=== PATIENT | male | born 1965 | race Caucasian/White ===

== ENCOUNTER 2018-12-15 13:24 | Inpatient (IN) | payer OTHER ==
[~2018-12-15] VITALS: Ht 188 cm; Wt 59.8 kg
[2018-12-15 14:47] LABS: BASOPHILS ABSOLUTE AUTO 0.01 K/mm3 (0.00-0.23); BASOPHILS PERCENT AUTO 0 % (0-2); EOSINOPHILS PERCENT AUTO 0 % (0-6); Hemoglobin 13.2 g/dL (13.5-17.5); IMMATURE GRAN ABSOLUTE AUTO 0.02 K/mm3 (0.00-0.10); IMMATURE GRAN PERCENT AUTO 0 % (0-1); LYMPHOCYTES ABSOLUTE AUTO 0.14 K/mm3 (0.84-5.20); LYMPHOCYTES PERCENT AUTO 3 % (21-46); MONOCYTES ABSOLUTE AUTO 0.34 K/mm3 (0.16-1.47); MONOCYTES PERCENT AUTO 6 % (4-13); Mean Corpuscular HGB 32.9 pg (26.0-34.0); Mean Corpuscular HGB Conc 33.8 g/dL (31.5-36.5); Mean Corpuscular Volume 97 fL (80-100); Mean Platelet Volume 10.2 fL (9.1-12.4); NEUTROPHILS PERCENT AUTO 91 % (41-73); Platelet Count 78 K/mm3 (150-400); RDW Coefficient Variation 13.5 % (11.7-14.2); RDW Standard Deviation 48.1 fL (35.1-46.3); Red Blood Cell Count 4.01 M/mm3 (4.30-5.90); White Blood Cell Count 5.71 K/mm3 (4.00-11.30)
[2018-12-15 14:58] LABS: Alanine Aminotransfer (ALT/SGP 184 U/L (12-78); Albumin, Blood 3.5 g/dL (3.4-5.0); Albumin/Globulin Ratio 1.1 (0.8-1.8); Alk Phos 87 U/L (50-136); Anion Gap 11 mmol/L (6-16); Aspartate Aminotrans (AST/SGOT 696 U/L (12-37); Bilirubin, Total 0.8 mg/dL (0.1-1.0); Blood Urea Nitrogen 6 mg/dL (8-24); Bun/Creatinine Ratio 9.9 (12.0-20.0); CO2, Blood 25 mmol/L (21-32); Chloride, Blood 105 mmol/L (98-108); Creatinine, Blood 0.61 mg/dL (0.60-1.20); Globulin, Blood 3.2 g/dL (2.2-4.0); Glomerular Filtration Rate >60 (60-); Glucose, Blood 105 mg/dL (70-99); Potassium, Blood 3.8 mmol/L (3.5-5.5); Sodium, Blood 141 mmol/L (136-145); Total Protein, Blood 6.7 g/dL (6.4-8.2)
[2018-12-15] MEDS ORDERED: SERT50 PO (15:53)
[2018-12-15] MEDS ORDERED: PRIM50 PO ×2 (15:53→15:57)
[2018-12-15] MEDS ORDERED: TAMS.4ER PO (15:54)
[2018-12-15] MEDS ORDERED: QUET300 PO (15:55)
[2018-12-15] MEDS ORDERED: CHOL10002 PO (15:56)
[2018-12-15] MEDS ORDERED: DIVA500ER PO (15:57)
[2018-12-15] MEDS ORDERED: B-1100 MG PO (15:58)
[2018-12-15] MEDS ORDERED: COUGHTAB200 MG PO (16:09)
[2018-12-15] MEDS ORDERED: CALCITRATE200 MG PO (16:12)
[2018-12-15] MEDS ORDERED: BENADRYL25 MG PO (16:25)
[2018-12-15 16:34] LABS: Source, Urine Clean Catch
[2018-12-15 16:48] LABS: Bilirubin, Urine Neg (Neg); Blood, Urine 2+ (Neg); Glucose Qualitative, Urine Neg (Neg); Ketones, Urine 1+ (Neg); Leukocyte Esterase, Urine 1+ (Neg); Nitrite, Urine Neg (Neg); Protein, Urine 2+ (Neg); Urobilinogen, Urine 2+ (Normal)
[2018-12-15 16:55] LABS: Appearance, Urine Clear (Clear); Color, Urine Yellow (P-Yellow)
[2018-12-15 16:56] LABS: White Blood Cells, Urine 0-2 /hpf (0-5)
[2018-12-15 16:57] LABS: Bacteria Few /hpf; Squamous Epithelial Cells Rare /hpf (Few)
[2018-12-15 17:31] LABS: International Normalized Ratio 1.02; Prothrombin Time Results 10.8 Sec (9.7-11.5)
--- NOTE | 2018-12-15 18:50 | NUR ---
DR MEEKS HERE TO SEE PT. REPORTS PT MAY EAT AND BE NPO AFTER MN. PT BEEN MED FOR PAIN. PT REPORTS HAVING ESSENTIAL TREMORS. PT DENIES ANY S/SX OF W/D AT THIS TIME. WILL REPORT TO ONCOMING NURSE.
--- NOTE | 2018-12-15 18:50 | NUR ---
PAS TO BLE CALF PLACED
--- NOTE | 2018-12-15 23:10 | NUR ---
2310: PT REPOSITIONED IN BED AND LINENS CHANGED. CHLORHEXIDINE WIPES TO RIGHT SIDE, HIP, GROIN AND BUTTOCKS. PT A&O WITH MODERATE BUE TREMORS AND SWEATING; SEE CIWA ASSESSMENT.
--- NOTE | 2018-12-16 02:24 | NUR ---
0224: RN ENTERS PT ROOM TO FIND PT HAS REMOVED GOWN, STAT LOCK AND IS TUGGING AT IV IN LEFT AC. PT APPEARS CONFUSED BUT STILL FOLLOWS DIRECTIONS. 2 STAFF MEMBERS REPOSITION AND REDRESS PT IN BED. PT MEDICATED PRN RIGHT HIP PAIN AND CIWA SCORE OF 14. URINE IN LAI APPEARS DARK TEA COLORED, MAINTAIN IV FLUIDS AND NPO STATUS IN ANTICIPATION OF POSSIBLE SURGERY LATER TODAY. CALL LIGHT IN REACH, BED ALARMED.
[2018-12-16 06:07] LABS: BASOPHILS ABSOLUTE AUTO 0.01 K/mm3 (0.00-0.23); BASOPHILS PERCENT AUTO 0 % (0-2); EOSINOPHILS ABSOLUTE AUTO 0.02 K/mm3 (0.00-0.68); EOSINOPHILS PERCENT AUTO 1 % (0-6); Hematocrit 30.6 % (37.0-53.0); Hemoglobin 10.2 g/dL (13.5-17.5); IMMATURE GRAN ABSOLUTE AUTO 0.01 K/mm3 (0.00-0.10); IMMATURE GRAN PERCENT AUTO 0 % (0-1); LYMPHOCYTES ABSOLUTE AUTO 0.27 K/mm3 (0.84-5.20); LYMPHOCYTES PERCENT AUTO 7 % (21-46); MONOCYTES PERCENT AUTO 11 % (4-13); Mean Corpuscular HGB 32.3 pg (26.0-34.0); Mean Corpuscular HGB Conc 33.3 g/dL (31.5-36.5); Mean Corpuscular Volume 97 fL (80-100); NEUTROPHILS ABSOLUTE AUTO 3.08 K/mm3 (1.96-9.15); NEUTROPHILS PERCENT AUTO 81 % (41-73); Platelet Count 51 K/mm3 (150-400); RDW Coefficient Variation 13.3 % (11.7-14.2); RDW Standard Deviation 47.6 fL (35.1-46.3); Red Blood Cell Count 3.16 M/mm3 (4.30-5.90); White Blood Cell Count 3.79 K/mm3 (4.00-11.30)
[2018-12-16 06:21] LABS: Anion Gap 7 mmol/L (6-16); Blood Urea Nitrogen 6 mg/dL (8-24); Bun/Creatinine Ratio 12.2 (12.0-20.0); CO2, Blood 27 mmol/L (21-32); Calcium, Blood 7.8 mg/dL (8.5-10.1); Chloride, Blood 104 mmol/L (98-108); Creatinine, Blood 0.49 mg/dL (0.60-1.20); Glomerular Filtration Rate >60 (60-); Glucose, Blood 97 mg/dL (70-99); Potassium, Blood 3.4 mmol/L (3.5-5.5); Sodium, Blood 138 mmol/L (136-145)
[2018-12-16 06:38] LABS: Albumin, Blood 2.8 g/dL (3.4-5.0); Albumin/Globulin Ratio 1.1 (0.8-1.8); Bilirubin, Direct 0.6 mg/dL (0.0-0.3); Bilirubin, Indirect 0.9 mg/dL (0.1-0.7); Bilirubin, Total 1.5 mg/dL (0.1-1.0); Globulin, Blood 2.6 g/dL (2.2-4.0); Magnesium, Blood 1.8 mg/dL (1.6-2.4); Total Protein, Blood 5.4 g/dL (6.4-8.2)
--- NOTE | 2018-12-16 07:20 | NUR ---
PT RESTING IN POSITION OF COMFORT. NADN. PT WITH LAI DRAINGING URINE, WAKES WITH MODERATED STIMULI. PT NPO TODAY FOR SURGICAL REPAIR OF RIGHT FX HIP. PT KNOWS NAME AND BIRTHDAY. RESP EVEN AND NON LABORED. ASSESSMENT CHARTED.
--- NOTE | 2018-12-16 07:34 | NUR ---
SUMMARY: ADMIT DAY 2 RIGHT HIP FX POST FALL AT HOME. VSS, AFEBRILE, ROOM AIR. LAI PATENT TEA COLORED URINE. PT TOLERATING REG PO INTAKE AND DENIES NAUSEA; VERBALIZES UNDERSTANDING OF NPO AFTER MIDNIGHT STATUS IN ANTICIPATION OF SURGERY. PT CIWA MANAGED UNTIL LATE IN SHIFT WHEN PT BECAME CONFUSED AND WAS PULLING AT LINES AND HAD DISROBED (SEE CIWA ASSESSMENT) PT MEDICATED PER CIWA ORDERS AND WHILE DROWSY CIWA SCORE DECREASED TO WELL MANAGED LEVEL. CONTINUE TO MONITOR.
--- NOTE | 2018-12-16 07:45 | NUR ---
PT TO IMAGING FOR CT AND XRAYS. TRANSPORTED VIA [facility].
--- NOTE | 2018-12-16 08:10 | NUR ---
PT RETURNED FROM IMAGING. MOVED BACK TO BED WITH STAFF ASSISTANCE. PT IN PAIN. WILL MEDICATE PER EMAR.
--- NOTE | 2018-12-16 08:35 | NUR ---
PT MEDICATED FOR PAIN AND FOR WITHDRAWAL SX.
--- NOTE | 2018-12-16 09:10 | NUR ---
PT RESTING MORE COMFORTABLY. RESP EVEN AND NON LABORED. WILL CONT TO MONITOR.
--- NOTE | 2018-12-16 10:07 | NUR ---
PT RESTING IN POSTION OF COMFORT. RESP EVEN AND NON LABORED.
--- NOTE | 2018-12-16 11:00 | NUR ---
DR MEEKS TO ROOM TO DISCUSS SURGERY AND PLATELET REPLACEMENT WITH PT. PT ALERT TO PERSON AND PLACE. PT TREMORS SEVERE. DR MEEKS WANTS SEDATING MEDS HELD SO PT CAN WAKE UP SOME FOR THE CONSENTING PROCESS. PT C/O SOME MILD PAIN AND CRAMPING TO RIGHT HIP. DENIES NUMBNESS. ABLE TO MOVE TOES. PULSES WNL.
--- NOTE | 2018-12-16 11:13 | NUR ---
DR MEEKS WANTS PLATELETS HELD FOR [facility].
--- NOTE | 2018-12-16 11:39 | NUR ---
PT TO OR.
--- NOTE | 2018-12-16 12:00 | NUR ---
History, Chart, Medications and Allergies reviewed before start of procedure. LS DIFFICULT TO ASSESS, PT IS DROWSY AND LS SOUND DIMINISHED IN BASES. Patient confirms NPO status and agrees with scheduled surgery. PT PLACED ON 2L NC DUE TO BIOX DROPPING TO 87% WHEN HE DOZES OFF TO SLEEP. BIOX 94% ON 2L.
--- NOTE | 2018-12-16 13:03 | NUR ---
PT IN OR AT THIS TIME FOR RIGHT HIP REPAIR WITH
--- NOTE | 2018-12-16 14:57 | NUR ---
12/16/18 1457 Noemy Evangelista PLATELETS STARTED BY DR. GHOTRA, CONFIRMED WITH RN, DONNELL.
--- NOTE | 2018-12-16 16:37 | NUR ---
IV DC'D TIP INTACT. IV USED TO INFUSE PLATELETS, TXA AND PROPOFOL.
[2018-12-16 17:05] LABS: BASOPHILS ABSOLUTE AUTO 0.02 K/mm3 (0.00-0.23); BASOPHILS PERCENT AUTO 0 % (0-2); EOSINOPHILS ABSOLUTE AUTO 0.05 K/mm3 (0.00-0.68); EOSINOPHILS PERCENT AUTO 1 % (0-6); Hematocrit 29.9 % (37.0-53.0); Hemoglobin 9.7 g/dL (13.5-17.5); IMMATURE GRAN ABSOLUTE AUTO 0.01 K/mm3 (0.00-0.10); IMMATURE GRAN PERCENT AUTO 0 % (0-1); LYMPHOCYTES ABSOLUTE AUTO 0.35 K/mm3 (0.84-5.20); LYMPHOCYTES PERCENT AUTO 7 % (21-46); MONOCYTES ABSOLUTE AUTO 0.42 K/mm3 (0.16-1.47); MONOCYTES PERCENT AUTO 9 % (4-13); Mean Corpuscular HGB 32.7 pg (26.0-34.0); Mean Corpuscular HGB Conc 32.4 g/dL (31.5-36.5); NEUTROPHILS PERCENT AUTO 83 % (41-73); Platelet Count 86 K/mm3 (150-400); RDW Coefficient Variation 13.2 % (11.7-14.2); RDW Standard Deviation 48.8 fL (35.1-46.3); Red Blood Cell Count 2.97 M/mm3 (4.30-5.90); White Blood Cell Count 4.85 K/mm3 (4.00-11.30)
[2018-12-16 17:15] LABS: Mean Corpuscular Volume 101 fL (80-100)
--- NOTE | 2018-12-16 17:40 | NUR ---
pt transported to room following sx via own bed, a/o x 4, pleasant, sleepy. essential tremor at baseline. pt states no n/v, requests dinner tray. vss, pt on 2l nc at 100%, titrated to 1l.
--- NOTE | 2018-12-17 00:45 | NUR ---
RECEIVED HAND OFF FROM Dottie WAYNE RN USING SBAR. LYING IN SEMI FOWLERS WITH EYES OPEN. AAO X3, BENÍTEZ, FOLLOWS ALL COMMANDS. REPOSITIONED FOR COMFORT, RIGHT KNEE NOTED TOWARD LEFT KNEE THAT IS IN PROPER POSITION. PT STATES THAT LEG IS SPASMING AT THIS TIME. PT ASSISTED IN RELAXING AND CORRECTING ODD ANGLE OF KNEE. VOICES RELIEF OF SPASMS. AQUACEL DRESSINGS TO RIGHT THIGH ARE C/D/I. DENIES FURHTER NEEDS AT THIS TIME. SAFETY MEASURES IN PLACE. WILL CONTINUE TO MONITOR.
[2018-12-17 04:34] LABS: BASOPHILS PERCENT AUTO 0 % (0-2); EOSINOPHILS PERCENT AUTO 0 % (0-6); Hemoglobin 8.2 g/dL (13.5-17.5); IMMATURE GRAN ABSOLUTE AUTO 0.01 K/mm3 (0.00-0.10); IMMATURE GRAN PERCENT AUTO 0 % (0-1); LYMPHOCYTES PERCENT AUTO 5 % (21-46); MONOCYTES ABSOLUTE AUTO 0.42 K/mm3 (0.16-1.47); MONOCYTES PERCENT AUTO 11 % (4-13); Mean Corpuscular HGB 32.3 pg (26.0-34.0); Mean Corpuscular HGB Conc 32.8 g/dL (31.5-36.5); Mean Platelet Volume 10.3 fL (9.1-12.4); NEUTROPHILS ABSOLUTE AUTO 3.15 K/mm3 (1.96-9.15); NEUTROPHILS PERCENT AUTO 83 % (41-73); Platelet Count 90 K/mm3 (150-400); RDW Coefficient Variation 13.1 % (11.7-14.2); RDW Standard Deviation 46.8 fL (35.1-46.3); Red Blood Cell Count 2.54 M/mm3 (4.30-5.90); White Blood Cell Count 3.78 K/mm3 (4.00-11.30)
[2018-12-17 04:37] LABS: Mean Corpuscular Volume 98 fL (80-100)
[2018-12-17 04:47] LABS: Albumin, Blood 2.5 g/dL (3.4-5.0); Anion Gap 7 mmol/L (6-16); Blood Urea Nitrogen 4 mg/dL (8-24); Bun/Creatinine Ratio 6.7 (12.0-20.0); CO2, Blood 32 mmol/L (21-32); Chloride, Blood 103 mmol/L (98-108); Glomerular Filtration Rate >60 (60-); Glucose, Blood 112 mg/dL (70-99); Phosphorus, Blood 1.8 mg/dL (2.5-4.9); Sodium, Blood 142 mmol/L (136-145)
--- NOTE | 2018-12-17 06:26 | NUR ---
NO CHANGES SINCE ASSUMPTION OF CARE. NO C/O PAIN, DISCOMFORT. DENIES FURTHER NEEDS OR WANTS AT THIS TIME. SAFETY MEASURES IN PLACE. WILL GIVE HAND OFF TO ONCOMING SHIFT USING SBAR DURING BEDSIDE REPORT.
--- NOTE | 2018-12-17 18:08 | NUR ---
SHIFT SUMMARY PAIN HAS BEEN MANAGED WITH PO PAIN MEDICATION. HE WAS A 1 ASSIST TO STAND AND SIT IN THE CHAIR TODAY. HE IS ABLE TO REPOSITION INDEPEDNENTLY IN BED AND SIT AT THE EOB WITHOUT ASSISTANCE. CIWA SCORE REMAINS <8 THIS SHIFT, LIBRIUM GIVEN X1. VSS. WILL CONTINUE TO MONITOR UNTIL REPORT TO ONCOMING RN.
--- NOTE | 2018-12-17 20:43 | NUR ---
PT FOUND SITTING ON EDGE OF BED NAKED PULLING AT IV AND LAI. PT AGGITATED WITH STAFF. REPLACED GOWN HELPED PT BACK IN BED. PLACED BED ALARM ON.
--- NOTE | 2018-12-17 21:34 | NUR ---
PT SET BED ALARM OFF TRYING TO GET OUT OF BED. PT STATES HE WANTS TO GO HOME. PT IRRITATED\AGGITATED AT STAFF FOR TRYING TO HELP HIM. EXPLAINED IT IS NOT SAFE FOR PT TO LEAVE AT HIS TIME PT BACK IN BED. BED ALARM ON
--- NOTE | 2018-12-17 23:35 | NUR ---
PT RECEIVING ATIVAN FOR ETOH WITHDRAWALS PER CWA ORDERS TONIGHT AND IS INCREASING IN CWA SCORE AND AGGITATION. PT FELL ASLEEP AFTER 2 MG IV THEN WOKE AND PULLED OUT IV, PULLED OFF DRESSINGS,PULLED LAI OUT OF STAT LOCK. THINKS HE IS AT HOME. PT TRYING TO CHEW ON SPO2 MONITOR PROBE. I CALLED AND RECEIVED CHANGE OF ORDERS PER JOSE ANTONIO.GAVE ADITIONAL ATIVAN 2 MG IV @ 2322 AND PT CONTINUES UNCHANGED PULLING AT TUBES. NOW TRYING TO CLIMB OOB. TRYING TO CHEW ON 02 CANNULA HAD SATS 88% ON R/A,I AGAIN CALLED AND SPOKE WITH JOSE ANTONIO AND ADVISED OF ABOVE.PT IS BEING ORDERED FOR TRANSFER TO ICU. ALSO GAVE ANOTHER DOSE OF ATIVAN 2 MG PER NEW 1X ORDER.PEAR PICKER IS AT PT BEDSIDE WAITING ICU RM ASSIGNMENT.
--- NOTE | 2018-12-18 00:04 | NUR ---
PT REPORT RECEIVED FROM OFFGOING SURGICAL NURSE, ELVIS SAINZ. WAITING FOR PT TRANSFER FROM SURGICAL UNIT TO ICU AT THIS TIME.
--- NOTE | 2018-12-18 00:05 | NUR ---
LISSETH WARD NP IN ICU AT THIS TIME. UPDATED LISSETH WARD OF PT'S STATUS. LISSETH WARD ORDERED PRECEDEX DRIP, AM RENAL LAB, AM MAG LAB, TRANSFER ORDERS TO ICU, BILAT WRIST RESTRAINTS. WAITING FOR PT TRANSFER AT THIS TIME.
--- NOTE | 2018-12-18 00:05 | NUR ---
PT TRANSFERRED FROM SURGICAL FLOOR TO ICU AT THIS TIME.
--- NOTE | 2018-12-18 00:10 | NUR ---
RECEIVED RM ASSIGNMENT FOR PT IN ICU. NOTIFIED JOSE ANTONIO ICU 13. ALSO DISCUSSED PRIOR PT FALLS AT HOME WITH ADMIT FRIDAY ENGINE HEAD REPAIRER AND HAS BRUISING ACROSS NASAL BRIDGE.NO FALLS WHILE HOSPITALIZED BUT DID NOT SEE WORK UP REEGARDING THIS ON ADMIT.KRISS. DOES NOT FOLLOW ORTHO PRECAUTIONS. PT APPEARS IN ACUTE ETOH WITHDRAWALS ON TRANSFER PER BED WITH LIVESTOCK BRANDS INSPECTOR AND RENAL CASE MANAGER. REPORTED TO RICHARD SAINZ. MOST RECENT CWA 18. LAST ATIVAN DOSE WAS NOW DOSE OF 2MG. ATIVAN NOT APPEARING TO HELP WHILE ON THIS UNIT.
--- NOTE | 2018-12-18 00:15 | NUR ---
ASSESSMENT PT ANXIOUS, AGITATED, RESTLESS, YELLING AT STAFF, A&O TO SELF, NOT FOLLOWING COMMANDS, ANSWERING FEW QUESTIONS, RESPONDS TO VERBAL STIMULI, SPONT OPENS EYES, CONFUSED, GARBLED SPEECH, INCOMPREHENSIBLE SPEECH, TREMORS, CURSING AT STAFF. CIWA COMPLETED - SEE CIWA SCORES. UNABLE TO FULLY ASSESS CIWA D/T PT'S INABILITY TO ANSWER ALL QUESTIONS. WAITING FOR PRECEDEX DRIP FROM PHARMACY AT THIS TIME. PRECEDEX DRIP - WILL TITRATE TO EFFECT. BJORN SENSATION. PT BENÍTEZ. NORMAL STRENGTH BUE'S. WEAKNESS BLE'S. PT REPOSITIONS SELF IN BED. FALL RISK PRECAUTIONS. PT PLACED IN BILAT WRIST RESTRAINTS TO PROTECT VITAL LINES/CORDS/TUBES. NO S/SX OF PAIN/DISCOMFORT NOTED. LUNGS CLEAR, LOWER LOBES DIMINISHED. PT ON 2L NC. OXY SAT >95%. RR 12. NO SOB. NO COUGHING. SHALLOW BREATHING. AFEBRILE. ST. HR 130'S TO 140'S. BP STABLE - SEE VS FS. STRONG PULSES. WARM, PINK SKIN. HYPOACTIVE BT X4 QUADRANTS. ABD SOFT, NONTENDER, MILD DIST. NO N/V. NO BM. F/C IN PLACE: YELLOW, CLEAR URINE. PIV X1. MELISSA, RN PLANNING TO INSERT ADDITIONAL PIV. R HIP FX - DRESSING C/D/I. PER REPORT - DRESSING CHANGED EARLIER THIS SHIFT.
--- NOTE | 2018-12-18 01:01 | NUR ---
LISSETH WARD CHARGE RN CALLED LISSETH WARD AT THIS TIME REGARDING ORDERS. LISSETH WARD PLANNING TO ORDER BANANA BAG, D/C NS AT 80 ML/HR, ORDERED NS AT 100 ML/HR, ORDER POTASSIUM PHOS IVPB. LISSETH WARD INSTRUCTED TO ADMINISTER POTASSIUM PHOS IVPB D/T ASPIRATION PRECAUTIONS WHILE ON PRECEDEX DRIP AND D/T ETOH W/D. LISSETH WARD INSTRUCTED TO COMPLETE AM LABS AFTER ADMINSITERING POTASSIUM PHOS IVPB.
--- NOTE | 2018-12-18 04:17 | NUR ---
SHIFT ASSESSMENT PT TRANSFERRED FROM SURGICAL FLOOR TO ICU THIS SHIFT. NO ACUTE CHANGES NOTED WHILE IN ICU. LESS ANXIETY, RESTLESS, AGITATION, YELLING AT STAFF, TREMORS, AND CURSING AT STAFF THIS AM. PT REMAINS A&O TO SELF, NOT FOLLOWING COMMANDS, ANSWERING FEW QUESTIONS, RESPONDS TO VERBAL STIMULI, SPONT OPENS EYES, CONFUSED, GARBLED SPEECH, INCOMPREHENSIBLE SPEECH. CONT TO ASSESS CIWA - SEE CIWA SCORES. UNABLE TO FULLY ASSESS CIWA D/T PT'S INABILITY TO ANSWER QUESTIONS. PRECEDEX DRIP AT 0.5 MCG/KG/HR - CONT TO TITRATE TO EFFECT. BJORN SENSATION. PT BENÍTEZ. NORMAL STRNGTH BUE'S. WEAKNESS BLE'S. PT REPOSITIONS SELF IN BED. FALL RISK PRECAUTIONS. PT PLACED IN BILAT WRIST RESTRAINTS TO PROTECT VITAL LINES/CORDS/TUBES. NO S/SX OF PAIN/DISCOMFORT NOTED. LUNGS CLEAR, LOWER LOBES DIMINISHED. PT ON 2L NC. OXY SAT REMAINED 90% AND GREATER WHILE ON 2L NC. OXY SAT <90% WHILE ON RA. RR 12 TO 20'S. NO SOB. OCC NONPRODUCTIVE COUGH. SHALLOW BREAHTING. AFEBRILE. NSR TO ST. HR 70'S TO 140'S. BP STABLE - SEE VS FS. STRONG PULSES. WARM, PINK SKIN. HYPOACTIVE BT X4 QUADRANTS. ABD SOFT, NONTENDER, MILD DIST. NO N/V. NO BM. F/C IN PLACE: YELLOW, CLEAR URINE NOTED. PIV X2. NS TKO AT 10 ML/HR. NS AT 100 ML/HR. POTASSIUM PHOS IVPB INFUSING. WAITING TO COMPLETE AM LABS UNTIL COMPLETION OF POTASSIUM PHOS IVPB. R HIP FX - DRESSING C/D/I. PER REPORT - DRESSING CHANGED EARLIER IN SHIFT. WILL CONT TO MONITOR PT AND WILL PROVIDE BEDSIDE REPORT TO ONCOMING NURSE AM.
--- NOTE | 2018-12-18 06:00 | NUR ---
AM LABS POTASSIUM PHOS IVPB COMPLETED AT THIS TIME. INFORMED TORIE ARCEO THAT POTASSIUM PHOS IVPB HAS BEEN ADMINISTERED, SO AM LABS CAN BE OBTAINED. WAITING FOR STRATEGIC PARTNER DEVELOPMENT MANAGER AT THIS TIME.
[2018-12-18 06:51] LABS: BASOPHILS ABSOLUTE AUTO 0.02 K/mm3 (0.00-0.23); BASOPHILS PERCENT AUTO 1 % (0-2); EOSINOPHILS ABSOLUTE AUTO 0.09 K/mm3 (0.00-0.68); EOSINOPHILS PERCENT AUTO 3 % (0-6); Hematocrit 23.7 % (37.0-53.0); Hemoglobin 7.9 g/dL (13.5-17.5); IMMATURE GRAN ABSOLUTE AUTO 0.02 K/mm3 (0.00-0.10); IMMATURE GRAN PERCENT AUTO 1 % (0-1); LYMPHOCYTES ABSOLUTE AUTO 0.48 K/mm3 (0.84-5.20); LYMPHOCYTES PERCENT AUTO 15 % (21-46); MONOCYTES ABSOLUTE AUTO 0.43 K/mm3 (0.16-1.47); MONOCYTES PERCENT AUTO 13 % (4-13); Mean Corpuscular HGB 32.6 pg (26.0-34.0); Mean Corpuscular HGB Conc 33.3 g/dL (31.5-36.5); Mean Corpuscular Volume 98 fL (80-100); Mean Platelet Volume 9.8 fL (9.1-12.4); NEUTROPHILS PERCENT AUTO 68 % (41-73); Platelet Count 101 K/mm3 (150-400); RDW Coefficient Variation 12.8 % (11.7-14.2); RDW Standard Deviation 45.5 fL (35.1-46.3); Red Blood Cell Count 2.42 M/mm3 (4.30-5.90); White Blood Cell Count 3.24 K/mm3 (4.00-11.30)
[2018-12-18 07:10] LABS: Alanine Aminotransfer (ALT/SGP 60 U/L (12-78); Albumin, Blood 2.4 g/dL (3.4-5.0); Albumin/Globulin Ratio 0.9 (0.8-1.8); Alk Phos 55 U/L (50-136); Anion Gap 6 mmol/L (6-16); Aspartate Aminotrans (AST/SGOT 65 U/L (12-37); Blood Urea Nitrogen 3 mg/dL (8-24); Bun/Creatinine Ratio 5.2 (12.0-20.0); CO2, Blood 31 mmol/L (21-32); Calcium, Blood 7.8 mg/dL (8.5-10.1); Chloride, Blood 104 mmol/L (98-108); Creatinine, Blood 0.58 mg/dL (0.60-1.20); Globulin, Blood 2.7 g/dL (2.2-4.0); Glomerular Filtration Rate >60 (60-); Glucose, Blood 99 mg/dL (70-99); Phosphorus, Blood 3.4 mg/dL (2.5-4.9); Potassium, Blood 3.5 mmol/L (3.5-5.5); Sodium, Blood 141 mmol/L (136-145); Total Protein, Blood 5.1 g/dL (6.4-8.2)
--- NOTE | 2018-12-18 07:54 | NUR ---
START OF SHIFT NOTE: PATIENT IS SLEEPING, DROWSY, BUT OPENS EYES BRIEFLY TO SPEECH, RESTRAINTS ARE APPLIED, PATIENT IS ON 0.6 MCG PRECEDEX, 2 L NC WITH O2 SATURATION IN MID TO UPPER 90S, NSR, BT'S ARE PRESENT IN ALL FOUR QUADRANTS, PATIENT IS A HIGH RISK FOR ASPIRATION, LAI CATHETER IN PLACE, PATIENT HAS KNEE HIGH TEDS HOSE IN PLACE WELL SCDS, INCISION ON RIGHT HIP COVERED WITH AQUACEL DRESSING, DRESSING APPEARS C/D/I, LOW GRADE TEMP OF 99.0, CALL LIGHT IN REACH, WILL CONTINUE TO MONITOR.
--- NOTE | 2018-12-18 11:14 | NUR ---
PATIENT IS AWAKE AND CONFUSED, TRYING TO SIT UP AND GET OUT OF BED, WHEN ASKED WHERE HE IS AND WHAT HAPPENED PATIENT STATED "I DON'T KNOW, I THOUGHT THEY FIXED ME AND RELEASE ME TO HOME", DENIES PAIN AT THIS TIME, REPOSITIONED SELF, RESTRAINTS IN PLACE AND PRECEDEX AT 0.6 AT THIS TIME, CALL LIGHT IN REACH, WILL CONTINUE TO MONITOR.
--- NOTE | 2018-12-18 13:11 | NUR ---
PATIENT CONTINUES TO BE CONFUSED, EXTREMELY FIDGETY IN BED, PULLING ON BRIEF AND PILLOW CASES, RESTRAINTS IN PLACE, WHEN PATIENT WAS ASKED WHERE HE WAS AND WHAT HE WAS DOING, HE STATED "I AM WATCHING THE PRIZE IS RIGHT, WHAT DOES IT LOOK LIKE", TV IN ROOM NOT ON, PATIENT WAS REPOSITIONED, PRECEDEX INCREASED TO 0.7 AT THIS TIME, CALL LIGHT IN REACH, WILL CONTINUE TO MONITOR.
--- NOTE | 2018-12-18 14:02 | NUR ---
DRESSING CHANGED ON RIGHT LATERAL LOWER EXTREMITY, SMALL AMOUNT OF DRAINAGE NOTED, OLD AQUACEL DRESSING REMOVED, INCISION SITE HAS SANDI IN PLACE, NO REDNESS, SWELLING OR ACTIVE DRAINAGE NOTED, AQUACEL DRESSING REPLACED, PATIENT TOLERATED WELL, RLE ELEVATED AND ICE APPLIED, CALL LIGHT IN REACH, WILL CONTINUE TO MONITOR.
--- NOTE | 2018-12-18 16:19 | NUR ---
PATIENT RECEIVED 2 MG ATIVAN IV AFTER A CIWA SCOR OF 19, PATIENT WAS FOUND EXTREMELY CONFUSED AND AGITATED/RESTLESS, HAD DISCONNECTED LAI CATHETER FROM STAT LOCK AND WAS TRYING TO PULL LAI CATHETER OUT, ALSO WAS TRYING TO PULL IV FROM POLE, STATED "AT THIS STATE I DON'T CARE", TRIED TO REORIENT, BUT PATIENT STARTED TO EXHIBIT VERY GARBLED SPEECH, REPOSITIONED, RESTRAINTS IN PLACE, RLE ELEVATED AND ICE APPLIED, PATIENT CONTINUES TO MOVE LEG AND TRIES TO KICK ICE BAGS AND PILLOWS OOB, CALL LIGHT IN REACH, WILL CONTINUE TO MONITOR.
--- NOTE | 2018-12-18 17:41 | NUR ---
SHIFT SUMMARY NOTE: PATIENT CONTINUES ON PRECEDEX DRIP, EXTREMELY AGITATED AT TIMES, TRYING TO GET OUT OF BED, MOVING LEGS OVER EDGE OF BED AND ATTEMPTED TO PULL OUT LAI CATHETER AND PIV LINES, PATIENT IS ALERT TO SELF ONLY, WHEN ASKED WHERE HE IS HE STATES SHERBORN, BUT KNOWS HE LIVES IN A PLACE OFF [facility], STATED "WHAT DO I NEED TO DO TO GET OUT OF HERE?", WHEN IT WAS EXPLAINED TO PATIENT THAT HE FRACTURED HIS RIGH LEG AND HAD SURGERY, HE COMMENTED "BUT THEY FIXED IT AND I CAN GO HOME", UNABLE TO UNDERSTAND THE SITUATION, HE WILL ALSO AT TIMES NOT ANSWER AND PRETEND TO BE ASLEEP, ON 2L NC D/T PRECEDEX USE AND SATING IN UPPER 90'S, SR/ST, BLODD PRESSURES IN 130'S, BT'S PRESENT AND HYPOACTIVE, NPO AT THIS TIME UNTIL SPEECH SEES PATIENT, HE IS A HIGH ASPIRATION RISK, REFUSED TO TRY SOME ENSURE, LAI CATHETER IN PLACE DRAINING LARGE AMOUNTS OF CLEAR YELLOW URINE, DAY SHIFT OUTPUT > 4L, RIGHT LOWER LEG SHOWS BRUISES ON LATERAL AND MEDIAL LEG, 3 AQUACEL DRESSINGS ON LATERAL LEG, CHANGED TODAY D/T SMALL AMOUNTS OF DRAINAGE, SADNI IN PLACE AND NO SWELLING OR REDNESS NOTED, NO BLEEDING VISIBLE, PATIENT WEARS KNEE HIGH TEDS HOSE BILATERALLY AND SCD'S, ALSO IS ON LOVENOX, PATIENT IS RESTRAINT D/T CONTINUES ATTEMPTS TO REMOVE LAI, PIV'S AND EXIT BED, PRECEDEX IS AT 0.7 AT THIS TIME, RECEIVED ATIVAN AND DILAUDID, CIWA SCORES EVERY 4 HOURS BETWEEN 12-19, REPOSITIONED FOR COMFORT, PATIENT HAD LOW GRADE TEMP OF 99.0 DURING DAY SHIFT, DR. SAHU AWARE, CALL LIGHT IN REACH, WILL CONTINUE TO MONITOR AND GIVE REPORT TO ONCOMING HUMAN RESOURCE ADVISER.
--- NOTE | 2018-12-18 19:08 | NUR ---
ASSUMED CARE OF PT, BEDSIDE REPORT RECEIVED. PT IS RESTING QUIETLY RECLINING IN BED, APPEARS TO BE SLEEPING, RESP EVEN AND REGULAR. DRESSINGS TO RIGHT LOWER EXTREMITY X 3 NOTED, CDI AT THIS TIME. HRR, SINUS ON MONITOR, RATE LOW 60S, BP MAINTAINING, PULSES FULL X 4 EXTREMITIES. MAINTAINING SATS WITH OXYGEN AT 2 L/MIN VIA NC, RESP WNL, LUNGS CLEAR THROUGHOUT. ABD WITH HYPOACTIVE BOWEL TONES X 4, ABD SOFT, NO GRIMACING WITH PALP. LAI CATH IN PLACE DRAINING CLEAR YELLOW URINE TO GRAVITY. IV X 2 TO RIGHT ARM, PRECEDEX GTT INFUSING AT 0.7 MCG/KG/HR AT THIS TIME, WILL MONITOR CIWA.
[2018-12-19 03:26] LABS: BASOPHILS ABSOLUTE AUTO 0.02 K/mm3 (0.00-0.23); BASOPHILS PERCENT AUTO 1 % (0-2); EOSINOPHILS ABSOLUTE AUTO 0.11 K/mm3 (0.00-0.68); EOSINOPHILS PERCENT AUTO 3 % (0-6); Hematocrit 25.2 % (37.0-53.0); Hemoglobin 8.4 g/dL (13.5-17.5); IMMATURE GRAN ABSOLUTE AUTO 0.01 K/mm3 (0.00-0.10); IMMATURE GRAN PERCENT AUTO 0 % (0-1); LYMPHOCYTES ABSOLUTE AUTO 0.45 K/mm3 (0.84-5.20); LYMPHOCYTES PERCENT AUTO 12 % (21-46); MONOCYTES ABSOLUTE AUTO 0.64 K/mm3 (0.16-1.47); MONOCYTES PERCENT AUTO 17 % (4-13); Mean Corpuscular HGB 33.2 pg (26.0-34.0); Mean Corpuscular HGB Conc 33.3 g/dL (31.5-36.5); Mean Corpuscular Volume 100 fL (80-100); Mean Platelet Volume 9.9 fL (9.1-12.4); NEUTROPHILS ABSOLUTE AUTO 2.49 K/mm3 (1.96-9.15); NEUTROPHILS PERCENT AUTO 67 % (41-73); NRBC ABSOLUTE 0.02 K/mm3 (0.00-0.02); NRBC Auto 0.5 /100 WBC (0.0-0.2); Platelet Count 144 K/mm3 (150-400); RDW Standard Deviation 46.5 fL (35.1-46.3); Red Blood Cell Count 2.53 M/mm3 (4.30-5.90); White Blood Cell Count 3.72 K/mm3 (4.00-11.30)
[2018-12-19 03:37] LABS: Alanine Aminotransfer (ALT/SGP 49 U/L (12-78); Albumin, Blood 2.3 g/dL (3.4-5.0); Albumin/Globulin Ratio 0.8 (0.8-1.8); Alk Phos 58 U/L (50-136); Anion Gap 7 mmol/L (6-16); Aspartate Aminotrans (AST/SGOT 62 U/L (12-37); Bilirubin, Total 1.1 mg/dL (0.1-1.0); Blood Urea Nitrogen 3 mg/dL (8-24); Bun/Creatinine Ratio 5.9 (12.0-20.0); CO2, Blood 31 mmol/L (21-32); Calcium, Blood 7.8 mg/dL (8.5-10.1); Chloride, Blood 105 mmol/L (98-108); Creatinine, Blood 0.51 mg/dL (0.60-1.20); Globulin, Blood 2.8 g/dL (2.2-4.0); Glomerular Filtration Rate >60 (60-); Glucose, Blood 90 mg/dL (70-99); Potassium, Blood 3.3 mmol/L (3.5-5.5); Sodium, Blood 143 mmol/L (136-145); Total Protein, Blood 5.1 g/dL (6.4-8.2)
--- NOTE | 2018-12-19 06:20 | NUR ---
PT RESTS QUIETLY THROUGHOUT SHIFT, PRECEDEX GTT WAS TITRATED DOWN TO 0.2 MCG/KG/HR FROM 0.7 MCG/KG/HR, PT IS ABLE TO STATE THAT HE IS IN THE HOSPITAL IN [facility] AND THE DATE IS DECEMBER 19 OR 2018, HE STATES THAT HE CAN REMEMBER THAT HE WAS ADMITTED FOR A HIP FX BUT THAT IT HAS FELT MORE "LIKE I'M IN A LAB AND THEY'RE DOING EXPERIMENTS ON ME" STATES THAT HE IS NOT HALLUCINATING THE ROOM JUST DIDN'T LOOK LIKE A HOSPITAL ROOM TO HIM. RESTRAINTS WERE DC'D AT 0300 THIS AM AT WHICH TIME PT WAS FULLY AWAKE AND REQUESTING WATER TO DRINK. HE WAS ABLE TO SWALLOW WITHOUT COUGHING OR THROAT CLEARING AND STATED THAT THERE WAS NO DIFFICULTY WITH ATTEMPT. CONTINUES TO DENY N/V, NUMBNESS/TINGLING, AND HEADACHES THROUGHOUT THE NOC. LUNGS REMAIN CLEAR THROUGHOUT, SATS MAINTAINING WITH OXYGEN AT 2 L/MIN, THIS WAS TITRATED DOWN TO 1 L/MIN FOR APPROX 2 HOURS AFTER WHICH HE WAS NOTED TO DESAT TO 88-89% HYPOTENSION NOTED AFTER ADMINISTRATION OF DILAUDID IV AND SBP OF 68, MANUAL BP OBTAINED AT THAT TIME WITH SBP OF 98, RADIAL PULSES +2 BILAT. DRESSING TO RIGHT THIGH REMAIN CDI WITHOUT CHANGES THROUGHOUT SHIFT.
--- NOTE | 2018-12-19 07:52 | NUR ---
0710-ASSUMED CARE OF PT. PT IS ASLEEP, AWAKENED TO VOICE. PT IS ORIENTED X3 - PLACE, NAME, TIME. PT IS ABLE TO TELL THIS NURSE THAT HE LIVES BY HIMSELF AND TAKES CARE OF HIMSELF. HE STATED THAT HE DOES HAVE SOME DIFFICULTY SWALLOWING MEDICATIONS. HE STATED THAT HE CHEWS TABLET PILLS AND WITH CAPSULES HE PLACES THEM AT THE SIDE OF HIS CHEEK AND TAKE IT WITH FOOD TO HELP HIM SWALLOW. NOTED PT HAS TREMORS WHICH HE ALSO STATES THIS IS BASELINE. PT COMPLAINED OF PAIN TO THE R HIP 7/10 SHARP PAIN WITH MOVEMENT OTHERWISE 5/10. PT STATED HE WANTED PAIN MEDICATION. TEMP IS 99.0. PT IS ON PRECEDEX DRIP @ 0.2MG/KG/HR. 0730-PT IS WENT BACK TO SLEEP. PRECEDEX DRIP DECREASED TO 0.1MG/KG/HR.
--- NOTE | 2018-12-19 08:14 | NUR ---
DR. SAHU AT BEDSIDE. UPDATED HER OF PT'S STATUS.
--- NOTE | 2018-12-19 10:36 | NUR ---
PHYSICAL THERAPY CAME TO WORK WITH PATIENT. PT IS CURRENTLY SITTING ON THE CHAIR AT THIS TIME. PRECEDEX DRIP @ 0.05MCG/KG/HR. PT HAS BEEN COOPERATIVE AND IS CALM
--- NOTE | 2018-12-19 10:56 | NUR ---
EXPLAINED TO PT AND FRIEND RE: EFFECTS OF ALCOHOL AND ALCOHOL WITHDRAWAL.
--- NOTE | 2018-12-19 11:04 | NUR ---
DR. SAHU WAS NOTIFIED REGARDING PT'S LOW BLOOD PRESSURE. ORDERS RECEIVED.
--- NOTE | 2018-12-19 11:24 | NUR ---
PRECEDEX DRIP WAS TURNED OFF @ 1110.
--- NOTE | 2018-12-19 13:39 | NUR ---
DR. SAHU WAS NOTIFIED PT'S BLOOD PRESSURE IS STILL IN THE 80s WITH MAP 54 DESPITE THE NS BOLUS. INFORMED HIM THAT PT IS DRINKING WELL. ORDERS RECEIVED.
--- NOTE | 2018-12-19 16:13 | NUR ---
REPORT GIVEN TO ALISTAIR MARTINEZ
--- NOTE | 2018-12-19 16:30 | NUR ---
ASSUMPTION OF CARE PATIENT RESTING QUIETLY IN BED. PATIENT ALERT AND ORIENTED X 4, AFEBRILE. PATIENT STATES THAT HE HAS PAIN IN HIS RIGHT HIP AND THIGH WITH MOVEMENT BUT THAT IT IS MANAGEABLE AT THIS TIME. PATIENT HAS FLAT AFFECT, CALM, COPPERATIVE. CIWA OF 4. PATIENT SATTING WELL ON RA. LUNGS CLEAR T/O. PATIENT DENIES COUGH. PATIENT IN SR, HR 60S TO 70S. BP STABLE. PATIENT STARTED ON PO MIDODRINE THIS SHIFT HAVING HYPOTENSION EARLIER IN SHIFT. PULSES STRONG. NO EDEMA NOTED. SCDS IN PLACE. NORMOACTIVE BS NOTED. PATIENT HAD BM THIS SHIFT. LAI DRAINING DARK YELLOW URINE. PATIENT HAS SCATTERED BRUISES ALL OVER BODY. ABRASION TO BRIDGE OF NOSE AND LEFT ANABAPTIST. DRESSING C/D/I TO RIGHT HIP/ THIGH FROM RECENT SURGERY. NS INFUSING AT 100 MLS/ HOUR. BED LOW, CALL LIGHT IN REACH. WILL CONTINUE TO MONITOR PATIENT FREQUENTLY THROUGHOUT SHIFT.
--- NOTE | 2018-12-19 18:18 | NUR ---
SHIFT SUMMARY PATIENT VITAL SIGNS HAVE REMAINED STABLE. PATIENT HAS NO COMPLAINTS AT THIS TIME. PATIENT SITTING UP EATING DINNER IN BED. BED LOW, CALL LIGHT IN REACH. WILL CONTINUE TO MONITOR UNTIL REPORT GIVEN TO ONCOMING ACQUISITION PROFESSIONAL NURSE SHORTLY.
--- NOTE | 2018-12-19 18:53 | NUR ---
ASSUMED CARE OF PT, REPORT RECEIVED. PT IS RESTING QUIETLY RECLINING IN BED, DENIES N/V, DENIES CP/PRESSURE, DENIES SOB/DYSPNEA, IS ABLE TO STATE THAT HE IS IN [facility] IN [place], PROVIDES ACCURATE DATE/TIME, CIWA IS 4 AT THIS TIME, TELLS JOKES TO STAFF PRESENT IN ROOM. PT IS NOTED SPEAKING IN FULL SENTANCES, LUNGS CLEAR THROUGHOUT, SATS WELL ON ROOM AIR AT THIS TIME, NO VISIBLE INCREASED WORK OF BREATHING, INCENTIVE SPIROMETER IS NOTED AT BEDSIDE. HRR, SINUS ON MONITOR, RATE 70S, HYPOTENSION PER MONITOR, WILL CHECK MANUAL BP, PT DENIES DIZZINESS/VERTIGO, PULSES ARE FULL AND EASY TO PALPATE X 4 EXTREMITIES, BRISK CAP REFILL IS NOTED. NORMOACTIVE BOWEL TONES NOTED, ABD SOFT, NONTENDER TO PALP. LAI CATHETER REMAINS IN PLACE DRAINING CLEAR YELLOW URINE TO GRAVITY. 20 G IV TO RIGHT HAND INFUSING NS AT TKO VIA INFUSION PUMP, 18 G IV TO RIGHT FOREARM INFUSING BANANA BAG AT 200 ML/HR AT THIS TIME VIA INFUSION PUMP, BOTH INSERTION SITES WNL, DRESSINGS CDI. AQUACEL DRESSINGS X 3 REMAIN CDI TO RIGHT HIP AND LATERAL THIGH.
[2018-12-20 03:42] LABS: BASOPHILS ABSOLUTE AUTO 0.01 K/mm3 (0.00-0.23); BASOPHILS PERCENT AUTO 0 % (0-2); EOSINOPHILS PERCENT AUTO 3 % (0-6); Hematocrit 22.8 % (37.0-53.0); Hemoglobin 7.5 g/dL (13.5-17.5); IMMATURE GRAN ABSOLUTE AUTO 0.01 K/mm3 (0.00-0.10); IMMATURE GRAN PERCENT AUTO 0 % (0-1); LYMPHOCYTES ABSOLUTE AUTO 0.43 K/mm3 (0.84-5.20); LYMPHOCYTES PERCENT AUTO 14 % (21-46); MONOCYTES ABSOLUTE AUTO 0.76 K/mm3 (0.16-1.47); MONOCYTES PERCENT AUTO 25 % (4-13); Mean Corpuscular HGB 33.3 pg (26.0-34.0); Mean Corpuscular HGB Conc 32.9 g/dL (31.5-36.5); Mean Corpuscular Volume 101 fL (80-100); Mean Platelet Volume 9.8 fL (9.1-12.4); NEUTROPHILS ABSOLUTE AUTO 1.78 K/mm3 (1.96-9.15); NEUTROPHILS PERCENT AUTO 58 % (41-73); Platelet Count 160 K/mm3 (150-400); RDW Coefficient Variation 13.6 % (11.7-14.2); RDW Standard Deviation 49.7 fL (35.1-46.3); Red Blood Cell Count 2.25 M/mm3 (4.30-5.90); White Blood Cell Count 3.09 K/mm3 (4.00-11.30)
[2018-12-20 04:01] LABS: Alanine Aminotransfer (ALT/SGP 39 U/L (12-78); Albumin/Globulin Ratio 0.7 (0.8-1.8); Alk Phos 57 U/L (50-136); Anion Gap 8 mmol/L (6-16); Aspartate Aminotrans (AST/SGOT 37 U/L (12-37); Bilirubin, Total 0.9 mg/dL (0.1-1.0); Blood Urea Nitrogen 6 mg/dL (8-24); Bun/Creatinine Ratio 11.3 (12.0-20.0); CO2, Blood 25 mmol/L (21-32); Calcium, Blood 7.6 mg/dL (8.5-10.1); Chloride, Blood 108 mmol/L (98-108); Creatinine, Blood 0.53 mg/dL (0.60-1.20); Globulin, Blood 2.7 g/dL (2.2-4.0); Glomerular Filtration Rate >60 (60-); Glucose, Blood 116 mg/dL (70-99); Potassium, Blood 3.2 mmol/L (3.5-5.5); Sodium, Blood 141 mmol/L (136-145); Total Protein, Blood 4.7 g/dL (6.4-8.2)
--- NOTE | 2018-12-20 07:02 | NUR ---
PT RESTS QUIETLY THROUGHOUT SHIFT, PAIN WELL CONTROLLED WITH NORCO 1 TAB X 1. CIWA RANGES FROM 4-9 LIBRIUM 50 MG ADMIN X 1 CIWA DECREASED BACK TO 4 FOLLOWING ADMINISTRATION. LAI CATH DC'D AT 0540 THIS AM, PT HAS BEEN ABLE TO VOID FOLLOWING REMOVAL AND DENIED BURNING OR DIFFICULTY, STATED THAT HE DOES FEEL LIKE HE ADEQUATELY EMPTIED HIS BLADDER. MONITOR CONTINUES TO HAVE INTERMITTENT LOW READINGS FOR BP, MANUAL CHECKS FOLLOWING THESE RESULT IN APPROX 30MM HG HIGHER READINGS. OTHERWISE NO ACUTE CHANGES THIS SHIFT.
--- NOTE | 2018-12-20 08:15 | NUR ---
INITIAL ASSESSMENT PATIENT RESTING QUIETLY IN BED UPON ENTERING ROOM. PATIENT CALM, COOPERATIVE. ALERT AND ORIENTED X 4, AFEBRILE. PATIENT HAS FLAT AFFECT. PATIENT STATES HE DID NOT SLEEP WELL DURING THE NIGHT. CIWA OF 3. TREMORS NOTED WHEN ARMS RAISED UP. PATIENT GIVEN PRN PAIN MEDICATION FOR COMPLAINT OF PAIN IN R HIP/ THIGH. PATIENT JENNY TO MOVE ALL EXTREMITIES ALTHOUGH IS WEAK IN BLES. PATIENT SATTING WELL ON RA. LUNGS CLEAR T/O. PATIENT DENIES COUGH. PATIENT IN SR, HR 80S TO 90S. BP STABLE. PULSES STRONG. NO EDEMA NOTED. GI WNL. WNL. PATIENT USING URINAL ON OWN. BRUISES SCATTERED ALL OVER BODY. DRESSING REMAINS C/D/I TO RIGHT HIP/ THIGH. SCABS TO BRIDGE OF NOSE AND LEFT EVANGELICAL. NS INFUSING AT 100 MLS/ HOUR. BED LOW, CALL LIGHT IN REACH. WILL CONTINUE TO MONITOR PATIENT FREQUENTLY THROUGHOUT SHIFT.
--- NOTE | 2018-12-20 09:17 | NUR ---
SPOKE TO DR. SAHU. INFORMED OF POTASSIUM OF 3.2 THIS AM AND HEMOGLOBIN DROP TO 7.5 THIS AM. ORDERS RECEIVED.
--- NOTE | 2018-12-20 10:56 | NUR ---
REPORT GIVEN TO ASSUMING NURSE ON SURGICAL FLOOR. PATIENT IS LEAVING FOR ROOM 213 AT THIS TIME.
--- NOTE | 2018-12-20 12:01 | NUR ---
TRANSFER: PT TRANSFER FROM ICU TO ROOM 213. PT MIN ASSIST TO BATHROOM AND BACK TO BED WITH WALKER AND GAIT BELT. CIWA SCORE 3. PAIN MANAGED WITH PRN MEDS. CALL LIGHT PLACED IN REACH. WILL CONT TO MONITOR AND TREAT.
--- NOTE | 2018-12-20 19:11 | NUR ---
PT HAS BEEN STABLE SINCE TRANSFER. BP STABLE, NO HYPOTENTION. PT MIN ASSIST TO BATHROOM, BM TODAY. VOIDING WELL WITH URINAL. PAS TO BLE. CIWA <3 T/O SHIFT. PT HAS ESSENTIAL TREMORS AT BASELINE. DRESSING CHANGED PER DOCTOR THIS AFTERNOON BY ORTHO DOCTOR. PT HAS BRUISING SCATTERED OVER BODY. LOVENOX DC'D PER DR GALLO. H+H DECREASED, LABS TO REPEAT IN AM. PT FLAT AFFECT, USES CALL LIGHT APPRORIATELY. EATING, DRINKING, VOIDING WELL.
[2018-12-21 04:44] LABS: BASOPHILS ABSOLUTE AUTO 0.02 K/mm3 (0.00-0.23); BASOPHILS PERCENT AUTO 1 % (0-2); EOSINOPHILS ABSOLUTE AUTO 0.11 K/mm3 (0.00-0.68); EOSINOPHILS PERCENT AUTO 3 % (0-6); Hematocrit 25.8 % (37.0-53.0); Hemoglobin 8.3 g/dL (13.5-17.5); IMMATURE GRAN ABSOLUTE AUTO 0.02 K/mm3 (0.00-0.10); IMMATURE GRAN PERCENT AUTO 1 % (0-1); LYMPHOCYTES ABSOLUTE AUTO 0.45 K/mm3 (0.84-5.20); LYMPHOCYTES PERCENT AUTO 12 % (21-46); MONOCYTES ABSOLUTE AUTO 0.74 K/mm3 (0.16-1.47); MONOCYTES PERCENT AUTO 20 % (4-13); Mean Corpuscular HGB 32.5 pg (26.0-34.0); Mean Corpuscular HGB Conc 32.2 g/dL (31.5-36.5); Mean Corpuscular Volume 101 fL (80-100); Mean Platelet Volume 10.2 fL (9.1-12.4); NEUTROPHILS ABSOLUTE AUTO 2.28 K/mm3 (1.96-9.15); NEUTROPHILS PERCENT AUTO 63 % (41-73); Platelet Count 214 K/mm3 (150-400); RDW Coefficient Variation 14.1 % (11.7-14.2); RDW Standard Deviation 52.1 fL (35.1-46.3); Red Blood Cell Count 2.55 M/mm3 (4.30-5.90); White Blood Cell Count 3.62 K/mm3 (4.00-11.30)
[2018-12-21 04:57] LABS: Anion Gap 6 mmol/L (6-16); Blood Urea Nitrogen 8 mg/dL (8-24); Bun/Creatinine Ratio 14.8 (12.0-20.0); CO2, Blood 30 mmol/L (21-32); Calcium, Blood 8.5 mg/dL (8.5-10.1); Chloride, Blood 106 mmol/L (98-108); Creatinine, Blood 0.54 mg/dL (0.60-1.20); Glomerular Filtration Rate >60 (60-); Glucose, Blood 115 mg/dL (70-99); Potassium, Blood 3.6 mmol/L (3.5-5.5); Sodium, Blood 142 mmol/L (136-145)
[2018-12-21 04:59] LABS: International Normalized Ratio 0.93; Prothrombin Time Results 9.6 Sec (9.7-11.5)
[2018-12-21 05:01] LABS: Percent Saturation 36.9 % (20.0-50.0)
--- NOTE | 2018-12-21 06:26 | NUR ---
LYING IN SEMI FOWLERS WITH EYES CLOSED. HAS ONLY C/O PAIN ONCE THIS SHIFT. FLAT AFFECT AT START OF SHIFT IMPROVED THROUGHOUT, PT BECAME RECEPTIVE TO CONVERSATION ATTEMPTS BY NURSING. DENEIS FURTHER NEEDS OR WANTS AT THIS TIME. SAFETY MEASURES IN PLACE. WILL GIVE HAND OFF TO ONCOMING SHIFT USING SBAR.
--- NOTE | 2018-12-21 19:30 | NUR ---
SHIFT SUMMARY PAIN HAS BEEN MANAGED WITH PO PAIN MEDICATION THIS SHIFT. PT IS A 1 ASSIST WHEN OOB. PT IS AWAITING SNF BED. VSS. REPORT GIVEN TO ANATOLY SAINZ.
--- NOTE | 2018-12-22 06:25 | NUR ---
SHIFT SUMMARY PT IS POD 6 RIGHT HIP REPAIR. HE IS AWAITING A SNF BED. NO S/SX OF WITHDRAWALS EXCEPT TREMORS IN HIS HANDS AT THIS POINT. AQUACEL X2 TO RIGHT HIP/THIGH, C/D/I. 1 ASSIST W/ FWW FOR AMBULATION, PT FOLLOWING [facility] STATUS. RAN BANANA BAG LAST NIGHT PER ORDERS. MEDICATED FOR PAIN PER EMAR. WILL CTM UNTIL PASS TO NEXT SHIFT.
--- NOTE | 2018-12-22 19:34 | NUR ---
SHIFT SUMMARY PT HAS DONE VERY WELL TODAY. AMBULATED IN HALLWAYS x 3. UP IN CHAIR ALL DAY. PAIN WELL MANAGED. TAKING IN PO.
--- NOTE | 2018-12-23 05:31 | NUR ---
LYING IN SEMI FOWLERS WITH EYES OPEN. MEDICATED FOR PAIN X1 THIS SHIFT. FLAT AFFECT CONTINUES. DENIES FURTHER NEEDS OR WANTS AT THIS TIME. SAFETY MEASURES IN PLACE. WILL GIVE HAND OFF TO ONCOMING SHIFT USING SBAR.
--- NOTE | 2018-12-23 15:17 | NUR ---
DISCHARGE PT D/C'D TO [facility]. PT AGREEABLE. PAIN WELL CONTROLLED. TOLERATING DIET. WALKING WELL. REPORT CALLED TO SNF.
== END 2018-12-23 15:04 | DRG 481 ==
LOC: ER 13:24 → ERHOLD 15:03 → ICUW 15:03 → SURS 15:03 → ICUW 12-17 23:59 → SURS 12-20 11:32 → ENPENDDIS 12-21 09:51 → SURS 12-23 15:04
PROVIDERS: Anesthesiology; Emergency Medicine; Internal Medicine; Nurse Practitioner Acute Care; Orthopaedic Surgery; ADMIT Internal Medicine
PROC: 30233R1 Transfusion of Nonautologous Platelets into Peripheral Vein, Percutaneous Approach (ICD-10-PCS; 2018-12-15)
PROC: 0QS604Z Reposition Right Upper Femur with Internal Fixation Device, Open Approach (ICD-10-PCS; principal; 2018-12-16 12:30)
DX: S72.041A Displaced fracture of base of neck of right femur, initial encounter for closed fracture (principal); F10.230 Alcohol dependence with withdrawal, uncomplicated; W19.XXXA Unspecified fall, initial encounter; Z91.81 History of falling; F31.70 Bipolar disorder, currently in remission, most recent episode unspecified; D69.6 Thrombocytopenia, unspecified; E87.6 Hypokalemia; R74.0 Nonspecific elevation of levels of transaminase and lactic acid dehydrogenase [LDH]
CPT/HCPCS: 36415; 51702; 71045; 73502; 73552; 73700; 76377; 76705; 80048; 80053; 80069; 80076; 81001; 82728; 83540; 83550; 83735; 84100; 85014; 85018; 85025; 85610; 86850; 86900; 86901; 87086; 93005; 93010; 94762; 96374-59; 97110; 97116; 97162; 97530; 99285-25; A9270-GY; C1713; C1769; G0480; J0330; J0690; J1100; J1170; J1650; J2060; J2370; J2405; J3010; J3475; J7030; J7040; J7042; J7050; J7060; J7120; P9035

== ENCOUNTER 2019-05-27 08:59 | Emergency (ER) | payer OTHER ==
[~2019-05-27] VITALS: Ht 188 cm; Wt 62.6 kg
[~2019-05-27 08:59] MED LIST: B-1100 MG PO; BENADRYL25 MG PO; CALCITRATE200 MG PO; CHOL10002 PO; COUGHTAB200 MG PO; DIVA500ER PO; PRIM50 PO; QUET300 PO; SERT50 PO; TAMS.4ER PO
[2019-05-27] MEDS ORDERED: IBUP600 PO (09:55)
[2019-05-27 12:01] LABS: BASOPHILS ABSOLUTE AUTO 0.08 K/mm3 (0.00-0.23); BASOPHILS PERCENT AUTO 2 % (0-2); EOSINOPHILS ABSOLUTE AUTO 0.04 K/mm3 (0.00-0.68); EOSINOPHILS PERCENT AUTO 1 % (0-6); Hemoglobin 13.6 g/dL (13.5-17.5); IMMATURE GRAN ABSOLUTE AUTO 0.01 K/mm3 (0.00-0.10); IMMATURE GRAN PERCENT AUTO 0 % (0-1); LYMPHOCYTES ABSOLUTE AUTO 0.92 K/mm3 (0.84-5.20); LYMPHOCYTES PERCENT AUTO 23 % (21-46); MONOCYTES ABSOLUTE AUTO 0.35 K/mm3 (0.16-1.47); MONOCYTES PERCENT AUTO 9 % (4-13); Mean Corpuscular HGB 31.8 pg (26.0-34.0); Mean Corpuscular HGB Conc 32.4 g/dL (31.5-36.5); Mean Corpuscular Volume 98 fL (80-100); Mean Platelet Volume 8.7 fL (9.1-12.4); NEUTROPHILS ABSOLUTE AUTO 2.54 K/mm3 (1.96-9.15); NEUTROPHILS PERCENT AUTO 64 % (41-73); Platelet Count 400 K/mm3 (150-400); RDW Coefficient Variation 14.7 % (11.7-14.2); RDW Standard Deviation 53.2 fL (35.1-46.3); Red Blood Cell Count 4.28 M/mm3 (4.30-5.90); White Blood Cell Count 3.94 K/mm3 (4.00-11.30)
[2019-05-27] MEDS ORDERED: XARELTO1 EACH PO (12:14)
[2019-05-27 12:35] LABS: Anion Gap 8 mmol/L (6-16); Blood Urea Nitrogen 5 mg/dL (8-24); Bun/Creatinine Ratio 8.1 (12.0-20.0); CO2, Blood 30 mmol/L (21-32); Calcium, Blood 8.7 mg/dL (8.5-10.1); Chloride, Blood 106 mmol/L (98-108); Creatinine, Blood 0.62 mg/dL (0.60-1.20); Glomerular Filtration Rate >60 (60-); Glucose, Blood 86 mg/dL (70-99); Potassium, Blood 4.2 mmol/L (3.5-5.5); Sodium, Blood 144 mmol/L (136-145)
== END 2019-05-27 12:22 | disposition home or self-care (01) ==
LOC: ER 08:59
PROVIDERS: Physician Assistant
DX: I82.411 Acute embolism and thrombosis of right femoral vein (principal); I82.431 Acute embolism and thrombosis of right popliteal vein; F31.9 Bipolar disorder, unspecified; M81.0 Age-related osteoporosis without current pathological fracture; Z88.1 Allergy status to other antibiotic agents; Z79.899 Other long term (current) drug therapy; Z96.641 Presence of right artificial hip joint
CPT/HCPCS: 36415; 80048; 85025; 93971; 99284-25

== ENCOUNTER 2019-05-31 12:50 | Emergency (ER) | payer OTHER ==
[~2019-05-31] VITALS: Ht 185.4 cm; Wt 62.6 kg
[~2019-05-31 12:50] MED LIST changes: +IBUP600 PO; +XARELTO1 EACH PO
== END 2019-05-31 14:00 | disposition left against medical advice (07) ==
LOC: ER 12:50
DX: Z53.21 Procedure and treatment not carried out due to patient leaving prior to being seen by health care provider (principal)

== ENCOUNTER 2019-06-01 08:38 | Observation (INO) | payer OTHER ==
[~2019-06-01] VITALS: Ht 185.4 cm; Wt 65.3 kg
--- NOTE | 2019-06-01 09:00 | NUR ---
ADMIT NOTE PT ARRIVED FROM HOME VIA WHEELCHAIR. ALERT AND ORIENTED X3. LUNG SOUNDS CLEAR, NSR RATE 75 PER TELEMETRY. 2+ PITTING EDEMA TO RIGHT FOOT, SCABBING NOTED TO RIGHT LEG AND SLIGHT REDNESS NOTED. RIGHT LEG WEAKNESS NOTED. C/O CHRONIC NUMBNESS TO BILATERAL FEET, PER PT NUMBNESS IS GREATER ON THE RIGHT, RADIATING UP THE LEG. SISTER AT BEDSIDE. PT AWARE OF NPO ORDER. CALL LIGHT IN REACH. WILL CONTINUE TO MONITOR.
--- NOTE | 2019-06-01 18:05 | NUR ---
SHIFT SUMMARY PT RESTING IN BED THROUGHOUT THE DAY. UP TO BATHROOM WITH STANDBY ASSIST. ALERT AND ORIENTED X3. LUNG SOUNDS CLEAR. NSR RATE 75 PER TELEMETRY. DENIES PAIN THROUGHOUT THE DAY. 2+ PITTING EDEMA TO RIGHT LEG, SOME REDNESS AND SCABS NOTED. C/O NUMBNESS TO BILATERAL FEET WITH INCREASED NUMBNESS TO RIGHT LEG. SISTER AT BEDSIDE THROUGHOUT THE DAY. PT AWAITING PROCEDURE IN [facility]. PT TO [facility]ENTER THIS EVENING FOR PROCEDURE.
--- NOTE | 2019-06-01 18:52 | NUR ---
1835 PT RETURNED FROM HEART CENTER. RIGHT POPLITEAL SITE SOFT, NO BLEED OR HEMATOMA, OPSITE NELLYG CDI. VSS. DENIES PAIN AT THIS TIME. SISTER AT BEDSIDE.
--- NOTE | 2019-06-01 22:09 | NUR ---
PATIENT EATING AND DRINKING. STOPPED D5NS INFUSION. PATIENT DENIES ANY PAIN. SITE INTACT WITHOUT SIGNS OF BLEEDING.
--- NOTE | 2019-06-02 04:19 | NUR ---
PATIENT NOT ABLE TO SLEEP MUCH. STATES HE FELL ASLEEP FOR A HALF AN HOUR OR SO, STATES HE HAS INSOMNIA AND THIS IS NOT UNCOMMON. SLEEPING AT BEDSIDE. PATIENT DENIES ANY PAIN THROUGH OUT THE NIGHT. POSTERIOR KNEE SITE INTACT WITH NO BLEEDING OR SWELLING. PATIENT SWELLING IN RIGHT LEG HAS DECREASED. PATIENT ABLE TO GET UP INDEPENDENTLY IN ROOM.
--- NOTE | 2019-06-02 07:41 | NUR ---
NURSING PCU DAYSHIFT: Assumed care of pt at approx 0700. A/O, pleasant, cooperative w/care. Denies any pain/discomfort, c/o mild numbness of RLE which has improved since procedure. R popliteal access site, dressing in place, no bleed or hematoma noted. Tele in place, NSR, no c/o CP/pressure, BP stable, trace RLE edema. Respiratory status stable, O2 sat upper 90's on RA, denies dyspnea, no noted cough. Abd SNT, voiding w/o difficulty per pt. PIV x1, s/l. No s/s of acute distress at this time. S/O currently at bedside, pt and s/o currently deny any questions/needs, anticipating discharge home this a.m. once discharge d/o received. Call light in reach, cont to monitor for any changes.
--- NOTE | 2019-06-02 09:30 | NUR ---
NURSING PCU DISCHARGE SUMMARY: No significant changes noted t/o the a.m. Discharge home d/o received from viscosity worker. Pt and sister verbalized understanding of all written and verbal discharge instructions. PIV dc'd w/cath intact. Pt escorted from unit via w/c accompanied by escort services and family. No s/s of acute distress at time of discharge.
== END 2019-06-02 10:05 | disposition home or self-care (01) ==
LOC: PCU 08:38
PROVIDERS: ADMIT Radiology Diagnostic Radiology
DX: I82.411 Acute embolism and thrombosis of right femoral vein (principal); F10.20 Alcohol dependence, uncomplicated; F31.9 Bipolar disorder, unspecified; Z86.711 Personal history of pulmonary embolism; Z88.1 Allergy status to other antibiotic agents; Z88.8 Allergy status to other drugs, medicaments and biological substances
CPT/HCPCS: 37187; 37248; 75820; 75825; 76937; 82947; 96360; 99152; 99153; C1724; C1725; C1769; C1887; C1894; G0378; J1644; J2250; J2405; J3010; J7030; J7042; J7799; Q9967

== ENCOUNTER 2019-09-24 14:27 | Emergency (ER) | payer OTHER ==
[~2019-09-24] VITALS: Ht 188 cm; Wt 65.8 kg
[2019-09-24 15:07] LABS: Source, Urine Clean Catch
[2019-09-24 15:30] LABS: Appearance, Urine Hazy (Clear); Blood, Urine 3+ (Neg); Color, Urine Amber (P-Yellow); Glucose Qualitative, Urine Neg (Neg); Ketones, Urine 1+ (Neg); Leukocyte Esterase, Urine 3+ (Neg); Nitrite, Urine Neg (Neg); Protein, Urine 3+ (Neg); Urobilinogen, Urine 3+ (Normal)
[2019-09-24 15:33] LABS: Bilirubin, Urine 1+ (Neg)
[2019-09-24 15:40] LABS: Bacteria Many /hpf; Squamous Epithelial Cells Few /hpf (Few); White Blood Cells, Urine 50-100 /hpf (0-5)
[2019-09-24] MEDS ORDERED: Pyridium200 MG PO (16:16)
[2019-09-24] MEDS ORDERED: Bactrim Ds Tab1 EACH PO (16:16)
== END 2019-09-24 16:39 | disposition home or self-care (01) ==
LOC: ER 14:27
PROVIDERS: Physician Assistant
DX: N39.0 Urinary tract infection, site not specified (principal); Z88.1 Allergy status to other antibiotic agents; Z88.8 Allergy status to other drugs, medicaments and biological substances; Z79.899 Other long term (current) drug therapy; Z79.01 Long term (current) use of anticoagulants; Z86.718 Personal history of other venous thrombosis and embolism
CPT/HCPCS: 81001; 87077; 87086; 87186; 99283-25

== ENCOUNTER 2019-10-04 12:32 | Emergency (ER) | payer OTHER ==
[~2019-10-04] VITALS: Ht 188 cm; Wt 63.5 kg
[~2019-10-04 12:32] MED LIST changes: +Bactrim Ds Tab1 EACH PO; +Pyridium200 MG PO
[2019-10-04 13:54] LABS: Source, Urine Clean Catch
[2019-10-04 13:59] LABS: Bilirubin, Urine Neg (Neg); Blood, Urine 1+ (Neg); Glucose Qualitative, Urine Neg (Neg); Ketones, Urine Neg (Neg); Leukocyte Esterase, Urine 3+ (Neg); Nitrite, Urine Neg (Neg); Protein, Urine 2+ (Neg); Specific Gravity, Urine 1.015 (1.003-1.022); Urobilinogen, Urine NORM (Normal)
[2019-10-04 14:10] LABS: Appearance, Urine Clear (Clear); Color, Urine Yellow (P-Yellow)
[2019-10-04 14:12] LABS: Bacteria Many /hpf; Mucus Light (0-Heavy); Squamous Epithelial Cells Rare /hpf (Few)
[2019-10-04 14:24] LABS: BASOPHILS ABSOLUTE AUTO 0.02 K/mm3 (0.00-0.23); BASOPHILS PERCENT AUTO 1 % (0-2); EOSINOPHILS ABSOLUTE AUTO 0.02 K/mm3 (0.00-0.68); EOSINOPHILS PERCENT AUTO 1 % (0-6); Hematocrit 37.6 % (37.0-53.0); Hemoglobin 12.5 g/dL (13.5-17.5); IMMATURE GRAN ABSOLUTE AUTO 0.07 K/mm3 (0.00-0.10); IMMATURE GRAN PERCENT AUTO 2 % (0-1); LYMPHOCYTES ABSOLUTE AUTO 0.57 K/mm3 (0.84-5.20); LYMPHOCYTES PERCENT AUTO 16 % (21-46); MONOCYTES ABSOLUTE AUTO 0.17 K/mm3 (0.16-1.47); MONOCYTES PERCENT AUTO 5 % (4-13); Mean Corpuscular HGB 31.6 pg (26.0-34.0); Mean Corpuscular HGB Conc 33.2 g/dL (31.5-36.5); Mean Corpuscular Volume 95 fL (80-100); Mean Platelet Volume 10.4 fL (9.1-12.4); NEUTROPHILS ABSOLUTE AUTO 2.63 K/mm3 (1.96-9.15); NEUTROPHILS PERCENT AUTO 76 % (41-73); Platelet Count 189 K/mm3 (150-400); RDW Coefficient Variation 14.6 % (11.7-14.2); RDW Standard Deviation 50.9 fL (35.1-46.3); Red Blood Cell Count 3.95 M/mm3 (4.30-5.90); White Blood Cell Count 3.48 K/mm3 (4.00-11.30)
[2019-10-04 14:44] LABS: Alanine Aminotransfer (ALT/SGP 126 U/L (12-78); Albumin, Blood 2.7 g/dL (3.4-5.0); Albumin/Globulin Ratio 0.6 (0.8-1.8); Alk Phos 63 U/L (50-136); Anion Gap 8 mmol/L (6-16); Aspartate Aminotrans (AST/SGOT 379 U/L (12-37); Bilirubin, Total 0.4 mg/dL (0.1-1.0); Blood Urea Nitrogen 6 mg/dL (8-24); Bun/Creatinine Ratio 8.6 (12.0-20.0); CO2, Blood 28 mmol/L (21-32); Chloride, Blood 100 mmol/L (98-108); Globulin, Blood 4.7 g/dL (2.2-4.0); Glomerular Filtration Rate >60 (60-); Glucose, Blood 93 mg/dL (70-99); Potassium, Blood 4.6 mmol/L (3.5-5.5); Sodium, Blood 136 mmol/L (136-145); Total Protein, Blood 7.4 g/dL (6.4-8.2)
[2019-10-05] MEDS ORDERED: Pyridium200 MG PO (09:32)
[2019-10-05] MEDS ORDERED: Invanz1 GM IV (09:33)
== END 2019-10-04 16:10 | disposition home or self-care (01) ==
LOC: ER 12:32
PROVIDERS: Emergency Medicine; Physician Assistant
DX: N39.0 Urinary tract infection, site not specified (principal); Z88.8 Allergy status to other drugs, medicaments and biological substances; Z88.1 Allergy status to other antibiotic agents; Z79.899 Other long term (current) drug therapy; F31.9 Bipolar disorder, unspecified
CPT/HCPCS: 36415; 74176; 80053; 81001; 83690; 85025; 87077; 87086; 87186; 96365; 99284-25; J1335

== ENCOUNTER 2019-10-05 00:58 | Day surgery (SDC) | payer OTHER ==
[2019-10-05] MEDS ORDERED: Pyridium200 MG PO (09:32)
[2019-10-05] MEDS ORDERED: Invanz1 GM IV (09:33)
[2019-10-06] MEDS ORDERED: Flomax0.4 MG PO (14:58)
== END 2019-10-05 09:28 | disposition home or self-care (01) ==
LOC: ATC 00:58
DX: N39.0 Urinary tract infection, site not specified (principal); F31.9 Bipolar disorder, unspecified; M81.0 Age-related osteoporosis without current pathological fracture; G25.0 Essential tremor; Z86.718 Personal history of other venous thrombosis and embolism; Z79.01 Long term (current) use of anticoagulants; Z79.2 Long term (current) use of antibiotics; Z79.899 Other long term (current) drug therapy; Z96.641 Presence of right artificial hip joint; Z88.1 Allergy status to other antibiotic agents; Z88.8 Allergy status to other drugs, medicaments and biological substances
CPT/HCPCS: 96365; J1335

== ENCOUNTER 2019-10-06 00:31 | Day surgery (SDC) | payer OTHER ==
[~2019-10-06 00:31] MED LIST changes: +Invanz1 GM IV
[2019-10-06] MEDS ORDERED: Flomax0.4 MG PO (14:58)
--- NOTE | 2019-10-06 15:02 | NUR ---
IV SITE: SITE IS BRUISED BY THE INSERTION SITE. FLUSHES EASILY WITHOUT PAIN OR DISCOMFORT. NO INFILTRATION. IV IS A 24 IN THE RIGHT FOREARM.
--- NOTE | 2019-10-06 15:30 | NUR ---
EDUCATION: PATIENT REPORTS DRINKING ONLY BEVERAGES WITH HIGH SUGAR CONTENT (SODA, SWEET TEA, POWERAID). PROVIDED EDUCATION ON THE IMPORTANCE OF DRINKING WATER IN RELATION TO CURRENT UTI. ALSO DISCUSSED TAMSULOSIN AND THE PURPORSE OF THIS MEDICATION.
== END 2019-10-06 15:28 | disposition home or self-care (01) ==
LOC: ATC 00:31
DX: N39.0 Urinary tract infection, site not specified (principal); R53.1 Weakness; Z79.2 Long term (current) use of antibiotics; Z79.01 Long term (current) use of anticoagulants; Z79.899 Other long term (current) drug therapy; Z88.1 Allergy status to other antibiotic agents; Z88.8 Allergy status to other drugs, medicaments and biological substances
CPT/HCPCS: 96365; J1335; J3010

== ENCOUNTER 2019-10-07 00:18 | Day surgery (SDC) | payer OTHER ==
[~2019-10-07 00:18] MED LIST changes: +Flomax0.4 MG PO
== END 2019-10-07 09:23 | disposition home or self-care (01) ==
LOC: ATC 00:18
DX: N39.0 Urinary tract infection, site not specified (principal); F31.9 Bipolar disorder, unspecified; M81.0 Age-related osteoporosis without current pathological fracture; G25.0 Essential tremor; Z86.718 Personal history of other venous thrombosis and embolism; Z79.01 Long term (current) use of anticoagulants; Z79.2 Long term (current) use of antibiotics; Z79.899 Other long term (current) drug therapy; Z96.641 Presence of right artificial hip joint; Z88.1 Allergy status to other antibiotic agents; Z88.8 Allergy status to other drugs, medicaments and biological substances
CPT/HCPCS: 96365; J1335

== ENCOUNTER 2019-10-08 01:36 | Day surgery (SDC) | payer OTHER | END 2019-10-08 08:30 | disposition home or self-care (01) | LOC: ATC 01:36 | DX: N39.0 Urinary tract infection, site not specified (principal); F31.9 Bipolar disorder, unspecified; M81.0 Age-related osteoporosis without current pathological fracture; G25.0 Essential tremor; Z86.718 Personal history of other venous thrombosis and embolism; Z79.01 Long term (current) use of anticoagulants; Z79.2 Long term (current) use of antibiotics; Z79.899 Other long term (current) drug therapy; Z96.641 Presence of right artificial hip joint; Z88.1 Allergy status to other antibiotic agents; Z88.8 Allergy status to other drugs, medicaments and biological substances | CPT/HCPCS: 96365; J1335 ==

== ENCOUNTER 2019-10-09 08:41 | Day surgery (SDC) | payer OTHER | END 2019-10-09 09:18 | disposition home or self-care (01) | LOC: ATC 08:41 | DX: N39.0 Urinary tract infection, site not specified (principal); F31.9 Bipolar disorder, unspecified; M81.0 Age-related osteoporosis without current pathological fracture; G25.0 Essential tremor; Z86.718 Personal history of other venous thrombosis and embolism; Z79.01 Long term (current) use of anticoagulants; Z79.2 Long term (current) use of antibiotics; Z79.899 Other long term (current) drug therapy; Z96.641 Presence of right artificial hip joint; Z88.1 Allergy status to other antibiotic agents; Z88.8 Allergy status to other drugs, medicaments and biological substances | CPT/HCPCS: 96365; J1335 ==

== ENCOUNTER 2019-10-10 08:30 | Day surgery (SDC) | payer OTHER | END 2019-10-10 09:13 | disposition home or self-care (01) | LOC: ATC 08:30 | DX: N39.0 Urinary tract infection, site not specified (principal); F31.9 Bipolar disorder, unspecified; M81.0 Age-related osteoporosis without current pathological fracture; G25.0 Essential tremor; Z79.2 Long term (current) use of antibiotics; Z79.01 Long term (current) use of anticoagulants; Z79.899 Other long term (current) drug therapy; Z88.1 Allergy status to other antibiotic agents; Z88.8 Allergy status to other drugs, medicaments and biological substances; Z86.718 Personal history of other venous thrombosis and embolism; Z96.641 Presence of right artificial hip joint | CPT/HCPCS: 96365; J1335 ==

== ENCOUNTER 2019-10-11 00:06 | Day surgery (SDC) | payer OTHER | END 2019-10-11 09:27 | disposition home or self-care (01) | LOC: ATC 00:06 | DX: N39.0 Urinary tract infection, site not specified (principal); F31.9 Bipolar disorder, unspecified; M81.0 Age-related osteoporosis without current pathological fracture; G25.0 Essential tremor; Z79.2 Long term (current) use of antibiotics; Z79.01 Long term (current) use of anticoagulants; Z79.899 Other long term (current) drug therapy; Z88.1 Allergy status to other antibiotic agents; Z88.8 Allergy status to other drugs, medicaments and biological substances; Z86.718 Personal history of other venous thrombosis and embolism; Z96.641 Presence of right artificial hip joint | CPT/HCPCS: 96365; J1335 ==

== ENCOUNTER 2019-10-12 00:16 | Day surgery (SDC) | payer OTHER | END 2019-10-12 09:35 | disposition home or self-care (01) | LOC: ATC 00:16 | DX: N39.0 Urinary tract infection, site not specified (principal); F31.9 Bipolar disorder, unspecified; M81.0 Age-related osteoporosis without current pathological fracture; G25.0 Essential tremor; Z79.2 Long term (current) use of antibiotics; Z79.01 Long term (current) use of anticoagulants; Z79.899 Other long term (current) drug therapy; Z86.718 Personal history of other venous thrombosis and embolism; Z96.641 Presence of right artificial hip joint; Z88.1 Allergy status to other antibiotic agents; Z88.8 Allergy status to other drugs, medicaments and biological substances | CPT/HCPCS: 96365; J1335 ==

== ENCOUNTER 2019-10-13 00:14 | Day surgery (SDC) | payer OTHER | END 2019-10-13 09:33 | disposition home or self-care (01) | LOC: ATC 00:14 | DX: N39.0 Urinary tract infection, site not specified (principal); F31.9 Bipolar disorder, unspecified; M81.0 Age-related osteoporosis without current pathological fracture; G25.0 Essential tremor; Z79.2 Long term (current) use of antibiotics; Z79.01 Long term (current) use of anticoagulants; Z79.899 Other long term (current) drug therapy; Z88.1 Allergy status to other antibiotic agents; Z88.8 Allergy status to other drugs, medicaments and biological substances; Z96.641 Presence of right artificial hip joint; Z86.718 Personal history of other venous thrombosis and embolism | CPT/HCPCS: 96365; J1335 ==

== ENCOUNTER 2019-10-14 00:27 | Day surgery (SDC) | payer OTHER | END 2019-10-14 23:13 | disposition home or self-care (01) | LOC: ATC 00:27 | DX: N39.0 Urinary tract infection, site not specified (principal); F31.9 Bipolar disorder, unspecified; M81.0 Age-related osteoporosis without current pathological fracture; G25.0 Essential tremor; Z86.718 Personal history of other venous thrombosis and embolism; Z79.2 Long term (current) use of antibiotics; Z79.899 Other long term (current) drug therapy; Z79.01 Long term (current) use of anticoagulants; Z88.1 Allergy status to other antibiotic agents; Z88.8 Allergy status to other drugs, medicaments and biological substances; Z96.641 Presence of right artificial hip joint | CPT/HCPCS: 96365; J1335 ==

== ENCOUNTER 2020-08-20 10:29 | Inpatient (IN) | payer OTHER ==
[~2020-08-20] VITALS: Ht 180.3 cm; Wt 64.3 kg
[2020-08-20] MEDS ORDERED: XARELTO20 M1 PO (10:34)
[2020-08-20] MEDS ORDERED: TAMSULOSIN HCL0.4 M1 PO (10:35)
[2020-08-20] MEDS ORDERED: PROP10 PO (10:35)
[2020-08-20] MEDS ORDERED: DIVA500EC PO (10:36)
[2020-08-20] MEDS ORDERED: Naltrexone HCl50 MG PO (10:36)
[2020-08-20 11:04] LABS: BASOPHILS ABSOLUTE AUTO 0.02 K/mm3 (0.00-0.23); BASOPHILS PERCENT AUTO 0 % (0-2); EOSINOPHILS PERCENT AUTO 0 % (0-6); Hematocrit 42.3 % (37.0-53.0); Hemoglobin 14.2 g/dL (13.5-17.5); IMMATURE GRAN ABSOLUTE AUTO 0.03 K/mm3 (0.00-0.10); IMMATURE GRAN PERCENT AUTO 0 % (0-1); LYMPHOCYTES ABSOLUTE AUTO 0.45 K/mm3 (0.84-5.20); LYMPHOCYTES PERCENT AUTO 5 % (21-46); MONOCYTES ABSOLUTE AUTO 0.55 K/mm3 (0.16-1.47); MONOCYTES PERCENT AUTO 6 % (4-13); Mean Corpuscular HGB 30.6 pg (26.0-34.0); Mean Corpuscular HGB Conc 33.6 g/dL (31.5-36.5); Mean Corpuscular Volume 91 fL (80-100); Mean Platelet Volume 10.1 fL (9.1-12.4); NEUTROPHILS ABSOLUTE AUTO 7.49 K/mm3 (1.96-9.15); NEUTROPHILS PERCENT AUTO 88 % (41-73); Platelet Count 108 K/mm3 (150-400); RDW Coefficient Variation 13.8 % (11.7-14.2); RDW Standard Deviation 45.8 fL (35.1-46.3); Red Blood Cell Count 4.64 M/mm3 (4.30-5.90); White Blood Cell Count 8.54 K/mm3 (4.00-11.30)
[2020-08-20 11:20] LABS: Alanine Aminotransfer (ALT/SGP 43 U/L (12-78); Alk Phos 83 U/L (50-136); Anion Gap 9 mmol/L (6-16); Aspartate Aminotrans (AST/SGOT 83 U/L (12-37); Bilirubin, Total 1.7 mg/dL (0.1-1.0); Blood Urea Nitrogen 16 mg/dL (8-24); Bun/Creatinine Ratio 14.3 (12.0-20.0); CO2, Blood 28 mmol/L (21-32); Calcium, Blood 9.6 mg/dL (8.5-10.1); Chloride, Blood 98 mmol/L (98-108); Creatinine, Blood 1.12 mg/dL (0.60-1.20); Ethanol (Alcohol), Blood, Med <3 mg/dL; Globulin, Blood 4.1 g/dL (2.2-4.0); Glomerular Filtration Rate >60 (60-); Glucose, Blood 133 mg/dL (70-99); Potassium, Blood 3.6 mmol/L (3.5-5.5); Sodium, Blood 135 mmol/L (136-145); Total Protein, Blood 8.1 g/dL (6.4-8.2)
[2020-08-20 18:40] LABS: Source, Urine Clean Catch
[2020-08-20 18:45] LABS: Appearance, Urine Hazy (Clear); Bilirubin, Urine Neg (Neg); Blood, Urine 2+ (Neg); Color, Urine Yellow (P-Yellow); Glucose Qualitative, Urine Neg (Neg); Ketones, Urine 2+ (Neg); Leukocyte Esterase, Urine 2+ (Neg); Nitrite, Urine Pos (Neg); Protein, Urine 1+ (Neg); Urobilinogen, Urine NORM (Normal)
[2020-08-20 19:00] LABS: Bacteria Many /hpf; Red Blood Cells, Urine 0-2 /hpf (0-2); Squamous Epithelial Cells Rare /hpf (Few)
--- NOTE | 2020-08-20 19:34 | NUR ---
ICU ADMISSION: REPORT RECIEVED FROM KHUSHI Hyde RN IN ED. PT ARRIVED TO ICU-02 AT APPROX 1809. ON ARRIVAL, PT IS SLID FROM GURNEY TO BED W/ SLIDER SHEET & 4 STAFF ASSIST. HE IS MUMBLING TO HIMSELF & OCCASIONALLY HAVING A CONVERSATION W/ HIS EYES CLOSED. MOST OF SPEECH IS NONSENSICAL OR INCOMPREHENSIBLE. PT HAS BEEN ON 2L NC W/ O2 SATS > 92%, SNORING IS NOTED WHEN PT RESTING SOUNDLY. MONITOR SHOWS SR W/ HR 90s, BP STABLE. PT IS STRICT NPO R/T HIGH ASPIRATION RISK AT THIS TIME. LAI PATENT/ DRAINING DARK YELLOW URINE. SKIN OVERALL CDI. WILL CONTINUE TO MONITOR & REPORT TO ONCOMING RN.
--- NOTE | 2020-08-21 00:05 | NUR ---
PT IS HAVING SIGNIFICANT FULL BODY TREMORS. IS ABLE TO OPEN EYES AND ANSWER QUESTIONS. CALL PLACED TO DR SAINZ, ORDER RECEIVED FOR VALIUM 2.5MG IV X 1 NOW.
--- NOTE | 2020-08-21 02:10 | NUR ---
GIVING PT A BREAK FROM RESTRAINTS. IS ABLE TO FOLLOW COMMANDS, ANSWERS QUESTIONS, KNOWS HES AT [facility]. WILL F/U
[2020-08-21 03:48] LABS: BASOPHILS ABSOLUTE AUTO 0.02 K/mm3 (0.00-0.23); BASOPHILS PERCENT AUTO 1 % (0-2); EOSINOPHILS ABSOLUTE AUTO 0.07 K/mm3 (0.00-0.68); EOSINOPHILS PERCENT AUTO 2 % (0-6); Hematocrit 41.2 % (37.0-53.0); Hemoglobin 12.9 g/dL (13.5-17.5); IMMATURE GRAN ABSOLUTE AUTO 0.01 K/mm3 (0.00-0.10); IMMATURE GRAN PERCENT AUTO 0 % (0-1); LYMPHOCYTES ABSOLUTE AUTO 0.57 K/mm3 (0.84-5.20); LYMPHOCYTES PERCENT AUTO 13 % (21-46); MONOCYTES ABSOLUTE AUTO 0.38 K/mm3 (0.16-1.47); MONOCYTES PERCENT AUTO 9 % (4-13); Mean Corpuscular HGB 29.7 pg (26.0-34.0); Mean Corpuscular HGB Conc 31.3 g/dL (31.5-36.5); Mean Corpuscular Volume 95 fL (80-100); Mean Platelet Volume 9.9 fL (9.1-12.4); NEUTROPHILS ABSOLUTE AUTO 3.21 K/mm3 (1.96-9.15); NEUTROPHILS PERCENT AUTO 75 % (41-73); Platelet Count 76 K/mm3 (150-400); RDW Coefficient Variation 13.6 % (11.7-14.2); RDW Standard Deviation 47.8 fL (35.1-46.3); Red Blood Cell Count 4.34 M/mm3 (4.30-5.90); White Blood Cell Count 4.26 K/mm3 (4.00-11.30)
[2020-08-21 04:50] LABS: Magnesium, Blood 2.1 mg/dL (1.6-2.4)
[2020-08-21 04:51] LABS: Alanine Aminotransfer (ALT/SGP 37 U/L (12-78); Albumin, Blood 3.3 g/dL (3.4-5.0); Albumin/Globulin Ratio 0.9 (0.8-1.8); Alk Phos 67 U/L (50-136); Anion Gap 5 mmol/L (6-16); Aspartate Aminotrans (AST/SGOT 85 U/L (12-37); Bilirubin, Total 1.3 mg/dL (0.1-1.0); Blood Urea Nitrogen 12 mg/dL (8-24); Bun/Creatinine Ratio 15.7 (12.0-20.0); CO2, Blood 31 mmol/L (21-32); Calcium, Blood 8.4 mg/dL (8.5-10.1); Chloride, Blood 107 mmol/L (98-108); Creatinine, Blood 0.76 mg/dL (0.60-1.20); Globulin, Blood 3.5 g/dL (2.2-4.0); Glomerular Filtration Rate >60 (60-); Glucose, Blood 70 mg/dL (70-99); Potassium, Blood 3.4 mmol/L (3.5-5.5); Sodium, Blood 143 mmol/L (136-145); Total Protein, Blood 6.8 g/dL (6.4-8.2)
--- NOTE | 2020-08-21 06:22 | NUR ---
PT UP TO ICU WITH LAI IN PLACE
--- NOTE | 2020-08-21 06:38 | NUR ---
SHIFT SUMMARY: PT DOING WELL THIS AM. OUT OF RESTRAINTS. PT IS MORE ALERT AND ORIENTED. WAKES UP, ANSWERS QUESTIONS, IS AWARE HE IS AT [facility], RECALLS ARRIVING VIA AMBULANCE, REALIZES HE WAS CONFUSED AT ONE POINT. VSS. ON RA. LUNGS CLEAR. SPO2 >90%. LAI IN PLACE. [address] PRECEDEX INFUSING AT 0.3. NS KCL AT 75MLS/HR. PT REQUIRED SEVERAL DOSES OF ATIVAN IV AND ONE STAT DOSE OF IV VALIUM. PT DOES HAVE SIGNIFICANT ALL OVER TREMORS THAT HE STATES ARE NORMAL FOR HIM. WILL PASS REPORT TO ONCOMING SHIFT.
--- NOTE | 2020-08-21 09:34 | NUR ---
CARE ASSUMED OF PT AT 0700. PT SLEEPING RESTFULLY ON PRECEDEX AT 0.3MCG FOR ETOH WITHDRAWALS. PT SLEEPING SOUNDLY BUT DOES AWAKEN TO LOUD VOICE AND LIGHT TOUCH. PT VERY DROWSEY BUT IS ORIENTED. PT DENIES COMPLAINTS. PT HAS SEVERE BILAT ARM TREMOR; PT STATES THIS IS BASELINE FOR HIM. CIWA 7 ONLY FOR TREMORS. LIBRIUM GIVEN; PT TOLERATES SIPS OF WATER W PILLS. PRECEDEX DECREASED TO 0.2MCG. PT FELL BACK TO SLEEP IMMEDIATELY AFTER ASSESSMENT.
[2020-08-21] MEDS ORDERED: Calcium Citrate PO (10:15)
[2020-08-21] MEDS ORDERED: DEPAKOTE ER500 MG PO (10:16)
[2020-08-21] MEDS ORDERED: Colace250 MG PT (10:18)
[2020-08-21] MEDS ORDERED: Naltrexone HCl50 MG PO (10:19)
[2020-08-21] MEDS ORDERED: Primidone50 MG PO (10:20)
[2020-08-21] MEDS ORDERED: VITAMIN D31000 UNI1 PO (10:21)
--- NOTE | 2020-08-21 12:06 | NUR ---
PT CONTINOUS TO SLEEP, REPOSITIONING SELF IN BED. REMAINS ORIENTED BUT VERY DROWSY. PRECEDEX CONT AT 0.2MCG, PT ONLY HAS TREMORS TO UPPER EXTREMITIES WHEN AWAKE. CIWA<7. PT DENIES COMPLAINTS AND FALLS BACK TO SLEEP QUICKLY AFTER QUESTIONS.
--- NOTE | 2020-08-21 19:42 | NUR ---
PT BRIEFLY WOKE UP AT 1700, PT ORIENTED X3, CONT TO BE DROWSY. MEAL OFFERED, PT DECLINED BUT DID DRINK 400CC WATER W PM MEDS. PRECEDEX REMAINS AT 0.2MCG FOR ETOH WITHDRAWAL. PT'S SISTER UPDATED WITH PT'S PERMISSION.
--- NOTE | 2020-08-22 06:39 | NUR ---
SHIFT SUMMARY: PT DID WELL T/O NIGHT. WAS ABLE TO RECAL SOME EVENTS LEADING UP TO ADMISSION. HE STATES HE DOESNT KNOW IF WHAT HE REMEMBER IS ACTUALLY WHAT HAPPENED. FEELS THAT HE LIKELY BLACKED OUT AND LOST SOME TIME. PT DID NOT HAVE ANY C/O W/D S/S. HAS TREMOR BUT STATES IT IS NORMAL AT BASELINE FOR HIM. VSS. ON RA. PT STILL RECEIVING NS KCL. PRECEDEX ON SB. IS ABLE TO TAKE PO
--- NOTE | 2020-08-22 08:05 | NUR ---
INITIAL ASSESSMENT PATIENT ALERT AND ORIENTED X 4. PATIENT IS FORGETFUL. PATIENT CONTINUES TO TELL NURSE THE SAME STORY EACH TIME ROOM IS ENTERED. PATIENT HAS ESSENTIAL TREMORS; PATIENT STATES THIS IS BASELINE. CIWA OF 3 BUT IS ONLY BECAUSE OF TREMORS. PATIENT STATES THAT HE EXPERIENCES BLACK OUTS AND THAT THIS IS NORMAL FOR HIM. PATIENT STATES HE HAS NOT TAKEN HOME MEDS SINCE FEBRUARY. PATIENT STATES THAT HE HAD BAD BALANCE AFTER HE BROKE HIS HIP. PATIENT WEAK BUT ABLE TO MOVE ALL EXTREMITIES AND REPOSITION SELF IN BED. PATIENT STATES THAT HIS EYES ARE ITCHY. SCLERA REDDENED. PATIENT SATTING 90% AND GREATER ON RA. LUNGS CLEAR. PATIENT IN SB TO SR, HR 50S TO 60S. SBP LOW 100S TO 130S. ANTI-EMBOLISM STOCKINGS IN PLACE. HYPOACTIVE BS NOTED. LAST BM YESTERDAY. PATIENT HAS POOR APPETITE. LAI IN PLACE; DRAINING DARK YELLOW COLORED URINE. SKIN APPEARS WNL. NSKCL INFUSING AT 75 MLS/ HOUR. BED LOW, CALL LIGHT IN REACH. WILL CONTINUE TO MONITOR PATIENT FREQUENTLY THROUGHOUT SHIFT.
[2020-08-22] MEDS ORDERED: TUMS500 MG PO (08:53)
--- NOTE | 2020-08-22 09:37 | NUR ---
DR. MANJARREZ CALLED AND INFORMED THAT PATIENT STATES HE HAS NOT TAKEN HIS HOME MEDICATIONS SINCE FEBRUARY. PATIENT STATED "I AM JUST NOT IN THE MED TO TAKE THEM ANYMORE". INFORMED THAT PATIENT STATES HE HAS BAD BALANCE WHEN AMBULATING. PATIENT STATES HE WAS USING WALKER WITH TENNIS BALLS AT HOME BUT IT KEPT GETTING CAUGHT ON THE SIDEWALK CRACKS SO HE JUST DOESN'T USE ONE ANYMORE. NURSE ASKED PATIENT IF A 4 WHEEL WALKER WITH WHEELS AND SEAT MAY WORK BETTER. PATIENT STATED THAT HE THOUGHT IT MIGHT. INFORMED THAT PATIENT HAS POSITIVE URINE CULTURE FOR E.COLI AND ESBL. NO ORDER RECEIVED AT THIS TIME.
--- NOTE | 2020-08-22 13:31 | NUR ---
NO NEURO CHANGES. VSS. HR IN THE 70S. SBP IN THE 120S. NSKCL DC'D. PATIENT USING URINAL AT BEDSIDE INDEPENDENTLY WHILE SITTING ON BED. NO COMPLAINTS OF PAIN.
--- NOTE | 2020-08-22 15:23 | NUR ---
SHIFT SUMMARY PATIENT HAS REMAINED ALERT AND ORIENTED X 4, HOWEVER IS VERY FORGETFUL. PATIENT CONTINUES TO TELL THE SAME STORY ABOUT GETTING THE FLU SHOT, EATING EGGS, AND ALLERGIES, EACH TIME THE NURSE IS IN THE ROOM. PATIENT GIVEN PRN BENADRYL OT FOR COMPLAINTS OF ALLERGIES. CIWA SCORE OF 3, ALTHOUGH THE ONLY REASON HE RECEIVED A 3 WAS BECAUSE OF HIS ESSENTIAL BASELINE TREMOR. PATIENT REMAINED SATTING 90% AND GREATER ON RA. HR RANGED FROM 50S TO 90S. SBP RANGED FROM LOW 100S TO 160S. ANTI-EMBOLISM STOCKINGS REMAIN IN PLACE. NO BM THIS SHIFT. PATIENT HAS BEEN USING URINAL AT BEDSIDE AFTER LAI REMOVED THIS SHIFT. NO CHANGE IN SKIN. PATIENT HAS BEEN REPOSITIONING SELF IN BED. IVS SALINE LOCKED. PATIENT RECEIVED BANANA BAG. PER PATIENT, HE IS MISSING HIS LICENCE. THIS NURSE WENT THROUGH ALL BELONGINGS WITH PATIENT AND STILL DID NOT FIND. PHYSICAL THERAPY WORKED WITH PATIENT AND STATED HE IS SBA. PATIENT'S SISTER, GLEN, CALLED AND INFORMED OF PATIENT BEING TRANSFERRED TO MEDICAL FLOOR, ROOM 359. MEDICAL FLOOR NURSE GIVEN REPORT.
--- NOTE | 2020-08-22 15:48 | NUR ---
PATIENT TRANSFERRED TO MEDICAL FLOOR.
--- NOTE | 2020-08-22 17:22 | NUR ---
SHIFT SUMMARY ICU TRANSFER THIS AFTERNOON. PATIENT DENIES PAIN, NAUSEA, AND SHORTNESS OF BREATH. PATIENT UP SBA W/FWW. DENIES WITHDRAWAL SYMPTOMS. PLEASANT AND COOPERATIVE WITH CARE.
--- NOTE | 2020-08-23 04:13 | NUR ---
SHIFT SUMMARY NO ACUTE CHANGES TO REPORT THIS SHIFT. PT HAS RESTED MOST OF THE NIGHT AND HAS DENIED NEEDS. PT HAS CHRONIC TREMOR AT BASELINE, AND HAS NO S/S OF ETOH WITHDRAWL SINCE TRANSFER FROM ICU YESTERDAY. RESTFUL NIGHT. VITALS STABLE. BED IN LOWEST POSITION, CALL LIGHT WITHIN REACH.
[2020-08-23 05:09] LABS: BASOPHILS ABSOLUTE AUTO 0.02 K/mm3 (0.00-0.23); BASOPHILS PERCENT AUTO 1 % (0-2); EOSINOPHILS ABSOLUTE AUTO 0.13 K/mm3 (0.00-0.68); EOSINOPHILS PERCENT AUTO 3 % (0-6); Hematocrit 39.4 % (37.0-53.0); Hemoglobin 13.1 g/dL (13.5-17.5); IMMATURE GRAN ABSOLUTE AUTO 0.01 K/mm3 (0.00-0.10); IMMATURE GRAN PERCENT AUTO 0 % (0-1); LYMPHOCYTES ABSOLUTE AUTO 0.91 K/mm3 (0.84-5.20); LYMPHOCYTES PERCENT AUTO 22 % (21-46); MONOCYTES ABSOLUTE AUTO 0.64 K/mm3 (0.16-1.47); MONOCYTES PERCENT AUTO 15 % (4-13); Mean Corpuscular HGB Conc 33.2 g/dL (31.5-36.5); Mean Corpuscular Volume 93 fL (80-100); Mean Platelet Volume 10.2 fL (9.1-12.4); NEUTROPHILS PERCENT AUTO 59 % (41-73); Platelet Count 115 K/mm3 (150-400); RDW Standard Deviation 47.5 fL (35.1-46.3); Red Blood Cell Count 4.23 M/mm3 (4.30-5.90); White Blood Cell Count 4.21 K/mm3 (4.00-11.30)
[2020-08-23 05:27] LABS: Anion Gap 6 mmol/L (6-16); Blood Urea Nitrogen 4 mg/dL (8-24); Bun/Creatinine Ratio 5.3 (12.0-20.0); CO2, Blood 32 mmol/L (21-32); Calcium, Blood 8.7 mg/dL (8.5-10.1); Chloride, Blood 107 mmol/L (98-108); Creatinine, Blood 0.75 mg/dL (0.60-1.20); Glomerular Filtration Rate >60 (60-); Glucose, Blood 89 mg/dL (70-99); Magnesium, Blood 1.6 mg/dL (1.6-2.4); Phosphorus, Blood 3.3 mg/dL (2.5-4.9); Sodium, Blood 145 mmol/L (136-145)
[2020-08-23] MEDS ORDERED: ONE DAILY ESS400 MCG PO (13:52)
[2020-08-23] MEDS ORDERED: B-1100 M1 PO (13:52)
--- NOTE | 2020-08-23 14:44 | NUR ---
DISCHARGE DISCHARGE MEDICATIONS AND INSTRUCTIONS EXPLAINED TO PATIENT. PATIENT STATED UNDERSTANDING. PCP FOLLOW UP WITH [facility]. BELONGINGS WITH PATIENT. IV'S REMOVED WITHOUT ISSUE. PATIENT TRANSFERED TO [facility] VIA WHEELCHAIR.
== END 2020-08-23 14:44 | disposition home or self-care (01) | DRG 897 ==
LOC: ER 10:29 → PCU 14:30 → ICUE 14:30 → PCU 14:56 → ICUE 18:12 → MEDS 08-22 15:48
PROVIDERS: Emergency Medicine; Internal Medicine; ADMIT Family Medicine
DX: F10.231 Alcohol dependence with withdrawal delirium (principal); D69.6 Thrombocytopenia, unspecified; E03.9 Hypothyroidism, unspecified; F31.9 Bipolar disorder, unspecified; J44.9 Chronic obstructive pulmonary disease, unspecified; K21.9 Gastro-esophageal reflux disease without esophagitis; Z86.718 Personal history of other venous thrombosis and embolism; Z79.01 Long term (current) use of anticoagulants; Z86.711 Personal history of pulmonary embolism; G25.0 Essential tremor; Z91.14 Patient's other noncompliance with medication regimen
CPT/HCPCS: 36415; 51702; 71045; 80048; 80053; 81001; 82607; 82746; 83690; 83735; 84100; 84443; 85025; 87077; 87086; 87186; 96361-59; 96365-59; 96368; 96375-59; 96376-59; 97110; 97162; 99285-25; A9270-GY; G0480; J2060; J3360; J3411; J3475; J3480; J7030; J7042

== ENCOUNTER → 2021-02-06 | Outpatient (CLI) | payer OTHER ==
[~2021-02-06] MED LIST changes: +B-1100 M1 PO; +Calcium Citrate PO; +Colace250 MG PT; +DEPAKOTE ER500 MG PO; +DIVA500EC PO; +Naltrexone HCl50 MG PO; +ONE DAILY ESS400 MCG PO; +PROP10 PO; +Primidone50 MG PO; +TAMSULOSIN HCL0.4 M1 PO; +TUMS500 MG PO; +VITAMIN D31000 UNI1 PO; +XARELTO20 M1 PO
== END | disposition home or self-care (01) ==
LOC: LAB SHORT 07:51 → LAB 07:51
DX: D48.5 Neoplasm of uncertain behavior of skin (principal)
CPT/HCPCS: 88305

== ENCOUNTER 2021-06-22 05:20 | Inpatient (IN) | payer OTHER ==
[~2021-06-22] VITALS: Ht 205.7 cm; Wt 66.9 kg
[~2021-06-22 05:20] MED LIST changes: +THERA-D2000 UNIT PO; -VITAMIN D31000 UNI1 PO
[2021-06-22 05:51] LABS: BASOPHILS ABSOLUTE AUTO 0.02 K/mm3 (0.00-0.23); BASOPHILS PERCENT AUTO 1 % (0-2); EOSINOPHILS ABSOLUTE AUTO 0.07 K/mm3 (0.00-0.68); EOSINOPHILS PERCENT AUTO 2 % (0-6); Hematocrit 40.5 % (37.0-53.0); Hemoglobin 13.9 g/dL (13.5-17.5); IMMATURE GRAN ABSOLUTE AUTO 0.02 K/mm3 (0.00-0.10); IMMATURE GRAN PERCENT AUTO 1 % (0-1); LYMPHOCYTES ABSOLUTE AUTO 0.66 K/mm3 (0.84-5.20); LYMPHOCYTES PERCENT AUTO 15 % (21-46); MONOCYTES PERCENT AUTO 14 % (4-13); Mean Corpuscular HGB 31.7 pg (26.0-34.0); Mean Corpuscular HGB Conc 34.3 g/dL (31.5-36.5); Mean Corpuscular Volume 92 fL (80-100); Mean Platelet Volume 10.8 fL (9.1-12.4); NEUTROPHILS ABSOLUTE AUTO 2.94 K/mm3 (1.96-9.15); NEUTROPHILS PERCENT AUTO 68 % (41-73); Platelet Count 159 K/mm3 (150-400); RDW Coefficient Variation 13.5 % (11.7-14.2); Red Blood Cell Count 4.39 M/mm3 (4.30-5.90); White Blood Cell Count 4.31 K/mm3 (4.00-11.30)
[2021-06-22 06:02] LABS: Alanine Aminotransfer (ALT/SGP 80 U/L (12-78); Albumin, Blood 3.2 g/dL (3.4-5.0); Albumin/Globulin Ratio 0.8 (0.8-1.8); Alk Phos 81 U/L (50-136); Anion Gap 4 mmol/L (6-16); Aspartate Aminotrans (AST/SGOT 125 U/L (12-37); Blood Urea Nitrogen 13 mg/dL (8-24); Bun/Creatinine Ratio 16.4 (12.0-20.0); CO2, Blood 31 mmol/L (21-32); Calcium, Blood 9.8 mg/dL (8.5-10.1); Chloride, Blood 102 mmol/L (98-108); Creatinine, Blood 0.79 mg/dL (0.60-1.20); Globulin, Blood 4.1 g/dL (2.2-4.0); Glomerular Filtration Rate >60 (60-); Glucose, Blood 97 mg/dL (70-99); Potassium, Blood 4.5 mmol/L (3.5-5.5); Sodium, Blood 137 mmol/L (136-145); Total Protein, Blood 7.3 g/dL (6.4-8.2)
[2021-06-22] MEDS ORDERED: Primidone50 MG PO (12:01)
[2021-06-22] MEDS ORDERED: SEROQUEL50 MG PO (12:02)
[2021-06-22] MEDS ORDERED: XARELTO10 M1 PO (12:03)
[2021-06-22] MEDS ORDERED: FLOMAX0.4 MG PO (12:05)
--- NOTE | 2021-06-22 17:30 | NUR ---
SHIFT SUMMARY PT ARRIVED TO UNIT FROM ER AND IS SLEEPING. PT VERBALIZES NAME AND LOCATION HOSPITAL. PT TRANSFERRED TO BED VIA SLIDE AND HAS BEEN SLEEPING SINCE. PT IS IN BED, ALARM ON, CALL LIGHT IN REACH.
--- NOTE | 2021-06-23 04:18 | NUR ---
RECEIVED PATIENT IN BED ASLEEP BUT AROUSABLE. ORIENTED TO PERSON AND TIME. DISORIENTED TO PLACE. PATIENT BECAME MORE ORIENTED DURING SHIFT. CIWA LESS THAN 8. PATIENT DENIES ANY DISCOMFORT. UPPER EXTREMITY TREMORS EVIDENT BUT NO EPISODES OF SEIZURES, HALLUCINATIONS, OR SWEAT. PT IS COMPLIANT WITH MEDS AND COOPERATIVE. SAFETY PRECAUTIONS IN PLACE. FREQUENT ROUNDS IN PROGRESS.
[2021-06-23 04:42] LABS: BASOPHILS ABSOLUTE AUTO 0.03 K/mm3 (0.00-0.23); BASOPHILS PERCENT AUTO 1 % (0-2); EOSINOPHILS ABSOLUTE AUTO 0.07 K/mm3 (0.00-0.68); EOSINOPHILS PERCENT AUTO 2 % (0-6); Hematocrit 44.4 % (37.0-53.0); Hemoglobin 14.5 g/dL (13.5-17.5); IMMATURE GRAN ABSOLUTE AUTO 0.01 K/mm3 (0.00-0.10); IMMATURE GRAN PERCENT AUTO 0 % (0-1); LYMPHOCYTES ABSOLUTE AUTO 0.57 K/mm3 (0.84-5.20); LYMPHOCYTES PERCENT AUTO 15 % (21-46); MONOCYTES ABSOLUTE AUTO 0.43 K/mm3 (0.16-1.47); MONOCYTES PERCENT AUTO 12 % (4-13); Mean Corpuscular HGB 30.4 pg (26.0-34.0); Mean Corpuscular HGB Conc 32.7 g/dL (31.5-36.5); Mean Corpuscular Volume 93 fL (80-100); Mean Platelet Volume 9.5 fL (9.1-12.4); NEUTROPHILS ABSOLUTE AUTO 2.63 K/mm3 (1.96-9.15); NEUTROPHILS PERCENT AUTO 70 % (41-73); Platelet Count 144 K/mm3 (150-400); RDW Coefficient Variation 13.5 % (11.7-14.2); RDW Standard Deviation 46.2 fL (35.1-46.3); Red Blood Cell Count 4.77 M/mm3 (4.30-5.90); White Blood Cell Count 3.74 K/mm3 (4.00-11.30)
[2021-06-23 05:13] LABS: Alanine Aminotransfer (ALT/SGP 125 U/L (12-78); Albumin, Blood 3.3 g/dL (3.4-5.0); Albumin/Globulin Ratio 0.9 (0.8-1.8); Alk Phos 80 U/L (50-136); Anion Gap 4 mmol/L (6-16); Aspartate Aminotrans (AST/SGOT 197 U/L (12-37); Bilirubin, Total 0.9 mg/dL (0.1-1.0); Blood Urea Nitrogen 8 mg/dL (8-24); CO2, Blood 31 mmol/L (21-32); Calcium, Blood 9.1 mg/dL (8.5-10.1); Chloride, Blood 105 mmol/L (98-108); Globulin, Blood 3.8 g/dL (2.2-4.0); Glomerular Filtration Rate >60 (60-); Glucose, Blood 80 mg/dL (70-99); Potassium, Blood 4.1 mmol/L (3.5-5.5); Sodium, Blood 140 mmol/L (136-145); Total Protein, Blood 7.1 g/dL (6.4-8.2)
--- NOTE | 2021-06-23 18:49 | NUR ---
Alert and oriented x2 , Denies any headache , nausea, vomiting and hallucination. Mild tremor noted. Score 3 in CIWA. Vital signs are stable. pleasant and cooperative.
[2021-06-24 05:03] LABS: BASOPHILS ABSOLUTE AUTO 0.03 K/mm3 (0.00-0.23); BASOPHILS PERCENT AUTO 1 % (0-2); EOSINOPHILS ABSOLUTE AUTO 0.05 K/mm3 (0.00-0.68); EOSINOPHILS PERCENT AUTO 1 % (0-6); Hematocrit 44.5 % (37.0-53.0); Hemoglobin 14.6 g/dL (13.5-17.5); IMMATURE GRAN ABSOLUTE AUTO 0.01 K/mm3 (0.00-0.10); IMMATURE GRAN PERCENT AUTO 0 % (0-1); LYMPHOCYTES PERCENT AUTO 19 % (21-46); MONOCYTES ABSOLUTE AUTO 0.56 K/mm3 (0.16-1.47); MONOCYTES PERCENT AUTO 13 % (4-13); Mean Corpuscular HGB 30.4 pg (26.0-34.0); Mean Corpuscular HGB Conc 32.8 g/dL (31.5-36.5); Mean Corpuscular Volume 93 fL (80-100); Mean Platelet Volume 9.5 fL (9.1-12.4); NEUTROPHILS ABSOLUTE AUTO 2.88 K/mm3 (1.96-9.15); NEUTROPHILS PERCENT AUTO 67 % (41-73); Platelet Count 165 K/mm3 (150-400); RDW Coefficient Variation 13.5 % (11.7-14.2); RDW Standard Deviation 45.8 fL (35.1-46.3); Red Blood Cell Count 4.81 M/mm3 (4.30-5.90); White Blood Cell Count 4.33 K/mm3 (4.00-11.30)
--- NOTE | 2021-06-24 05:22 | NUR ---
RECEIVED PATIENT IN BED AAOX3. VITAL SIGNS STABLE. PATIENT DENIES ANY DISCOMFORT. MILD TREMORS. PATIENT IS CALMER. COMPLIANT WITH MEDS AND COOPERATIVE. EFFECTIVE COMMUNICATION WITH STAFF. SAFETY AND COMFORT MEASURES MAINTAINED. FREQUENT ROUNDING IN PROGRESS.
[2021-06-24 05:31] LABS: Alanine Aminotransfer (ALT/SGP 140 U/L (12-78); Albumin, Blood 3.3 g/dL (3.4-5.0); Albumin/Globulin Ratio 0.8 (0.8-1.8); Alk Phos 81 U/L (50-136); Anion Gap 3 mmol/L (6-16); Aspartate Aminotrans (AST/SGOT 182 U/L (12-37); Bilirubin, Total 0.7 mg/dL (0.1-1.0); Blood Urea Nitrogen 9 mg/dL (8-24); Bun/Creatinine Ratio 10.2 (12.0-20.0); CO2, Blood 31 mmol/L (21-32); Calcium, Blood 9.3 mg/dL (8.5-10.1); Chloride, Blood 106 mmol/L (98-108); Creatinine, Blood 0.89 mg/dL (0.60-1.20); Globulin, Blood 3.9 g/dL (2.2-4.0); Glomerular Filtration Rate >60 (60-); Glucose, Blood 89 mg/dL (70-99); Potassium, Blood 4.2 mmol/L (3.5-5.5); Sodium, Blood 140 mmol/L (136-145); Total Protein, Blood 7.2 g/dL (6.4-8.2)
--- NOTE | 2021-06-24 18:45 | NUR ---
Alert and oriented x3, denies any headach , nausea , vomiting and dizziness. No hallucination or hearing voices reported. mild tremor noted. Vital signs are stable. One person assist with ADLs. Ambulate to bathroom with SBA. continue to monitor.
--- NOTE | 2021-06-25 03:23 | NUR ---
PATIENT IS IN BED AAOX3. MORE TALKATIVE TODAY. SHE COMPLAINED OF RIGHT SHOULDER PAIN. MEDICATED WITH TYLENOL. PATIENT DENIES PAIN AT THIS TIME. DRESSING AT PACER SITE DRY AND INTACT. ON TELE SINUS RHYTHM. ASSISTED WITH ADLS. SAFETY AND COMFORT MEASURES PROVIDED.
--- NOTE | 2021-06-25 03:27 | NUR ---
PATIENT IN BED AAOX3. HE DENIES ANY DISCOMFORT. NO S/S OF WITHDRAWAL. NO NAUSEA OR VOMITTING. MILD TREMORS. DENIES HEADACHE OR HALLUCINATIONS. MEDS GIVEN. PATIENT IS COMPLIANT AND COOPERATIVE. SAFETY AND COMFORT MEASURES MAINTAINED.
[2021-06-25 05:12] LABS: BASOPHILS ABSOLUTE AUTO 0.02 K/mm3 (0.00-0.23); BASOPHILS PERCENT AUTO 0 % (0-2); EOSINOPHILS ABSOLUTE AUTO 0.08 K/mm3 (0.00-0.68); EOSINOPHILS PERCENT AUTO 2 % (0-6); Hematocrit 44.4 % (37.0-53.0); Hemoglobin 14.6 g/dL (13.5-17.5); IMMATURE GRAN ABSOLUTE AUTO 0.01 K/mm3 (0.00-0.10); IMMATURE GRAN PERCENT AUTO 0 % (0-1); LYMPHOCYTES ABSOLUTE AUTO 0.91 K/mm3 (0.84-5.20); LYMPHOCYTES PERCENT AUTO 20 % (21-46); MONOCYTES ABSOLUTE AUTO 0.63 K/mm3 (0.16-1.47); MONOCYTES PERCENT AUTO 14 % (4-13); Mean Corpuscular HGB 30.4 pg (26.0-34.0); Mean Corpuscular HGB Conc 32.9 g/dL (31.5-36.5); Mean Corpuscular Volume 93 fL (80-100); Mean Platelet Volume 9.5 fL (9.1-12.4); NEUTROPHILS ABSOLUTE AUTO 2.92 K/mm3 (1.96-9.15); NEUTROPHILS PERCENT AUTO 64 % (41-73); Platelet Count 163 K/mm3 (150-400); RDW Coefficient Variation 13.7 % (11.7-14.2); RDW Standard Deviation 46.5 fL (35.1-46.3); White Blood Cell Count 4.57 K/mm3 (4.00-11.30)
[2021-06-25 05:43] LABS: Alanine Aminotransfer (ALT/SGP 146 U/L (12-78); Albumin, Blood 3.3 g/dL (3.4-5.0); Albumin/Globulin Ratio 0.9 (0.8-1.8); Alk Phos 76 U/L (50-136); Anion Gap 5 mmol/L (6-16); Aspartate Aminotrans (AST/SGOT 148 U/L (12-37); Bilirubin, Total 0.6 mg/dL (0.1-1.0); Blood Urea Nitrogen 10 mg/dL (8-24); Bun/Creatinine Ratio 12.2 (12.0-20.0); CO2, Blood 28 mmol/L (21-32); Calcium, Blood 9.1 mg/dL (8.5-10.1); Chloride, Blood 108 mmol/L (98-108); Creatinine, Blood 0.82 mg/dL (0.60-1.20); Globulin, Blood 3.8 g/dL (2.2-4.0); Glomerular Filtration Rate >60 (60-); Glucose, Blood 89 mg/dL (70-99); Potassium, Blood 3.4 mmol/L (3.5-5.5); Sodium, Blood 141 mmol/L (136-145); Total Protein, Blood 7.1 g/dL (6.4-8.2)
[2021-06-25] MEDS ORDERED: Vitamin B Comple1 EA PO (09:43)
[2021-06-25] MEDS ORDERED: FOLI1 PO (09:43)
--- NOTE | 2021-06-25 11:03 | NUR ---
ADMIT: 06/22/21 DISCHARGE: TBD DX: ALCOHOL WITHDRAWAL WITH delerium CC: Belinda TORRES SALLY CALL: PT AT HOME [phone] RESIDENCE: HOME CAREGIVER: GLEN YO, FAMILY MEMBER, PRIOR TO ADMIT - DME: NONE CCM: NONE HHC/HOSPICE: NONE [facility]: [facility] UPDATE 06/25/21: PER CHART REVIEW WITH DR. CRONIN, PT. APPROPRIATE FOR DISCHARGE TODAY. PT. HAS BEEN ACCEPTED TO [facility] FOR REHAB, BUT HAS [address] U[address]ED [address]AILABLE[address] CRONIN HAD EXTENSIVE CONVERSATION WITH PT. ADVISING THAT IT WOULD BE MOST APPROPRIATE FOR HIM TO LIVE WITH HIS SISTER UNTIL THAT TIME TO ENSURE THAT HE HAS SUPPORT WITH HIS SOBRIETY. PT. UNDERSTANDS THE RECOMMENDATION, BUT HAS REFUSED. HE WOULD LIKE TO RETURN HOME. PT. LIVES ALONE CURRENTLY. PLAN TO CONTACT [facility] TO REQUEST THAT PT. IS NOTIFIED IF ANY BEDS OPEN UP SOONER FOR IN PATIENT REHAB. WILL SCHEDULE PT. A F/U WITH [facility] EARLIEST AVAILABLE AND ALSO WITH PCP WITHIN 5-7 DAYS POST DISCHARGE. NOTIFIED [facility] THAT PT. WAS ADMITTED AND DISCUSSED CARE.
--- NOTE | 2021-06-25 14:58 | NUR ---
Alert and oriented x3 , able to make needs known. Denies any pain, headache, nausea , vomiting and dizziness. vital signs are stable. Has mild tremor. Discharge in stable condition. Understood DC instruction and follow up.
--- NOTE | 2021-06-26 11:20 | NUR ---
Update 06/25/21: Called to [facility] with pt. on speaker phone to talk to medical records analyst Katey and nurse Horace regarding patient's belongings and the possibility of him getting a bed at the facility again soon. They have pt. on the list and will be getting him a bed as soon as possible. Patient's belongings will be sent to hospital via RA at facility. Pt. scheduled for hospital F/U with PCP 06/28/21 and with Justus Holcomb on 06/27/21 via phone call.
== END 2021-06-25 14:47 | disposition home or self-care (01) | DRG 897 ==
LOC: ER 05:20 → MEDS 15:50 → ENPENDDIS 06-25 11:35 → MEDS 06-25 14:47
PROVIDERS: Student in an Organized Health Care Education/Training Program; ADMIT Family Medicine
DX: F10.231 Alcohol dependence with withdrawal delirium (principal); F31.9 Bipolar disorder, unspecified; F41.9 Anxiety disorder, unspecified; M81.0 Age-related osteoporosis without current pathological fracture; N40.0 Benign prostatic hyperplasia without lower urinary tract symptoms; K76.0 Fatty (change of) liver, not elsewhere classified; E03.9 Hypothyroidism, unspecified; M19.90 Unspecified osteoarthritis, unspecified site; K21.9 Gastro-esophageal reflux disease without esophagitis; Z98.890 Other specified postprocedural states; Z88.1 Allergy status to other antibiotic agents; Z88.8 Allergy status to other drugs, medicaments and biological substances; Z86.718 Personal history of other venous thrombosis and embolism; Z86.711 Personal history of pulmonary embolism
CPT/HCPCS: 36415; 80053; 82947; 83735; 85025; 93005; 93010; 96365; 96366; 96372-59; 96375; 96376; 99285-25; A9270; J1650; J2060; J3411; J3475; J7042

== ENCOUNTER 2021-08-08 00:55 | Emergency (ER) | payer OTHER ==
[~2021-08-08] VITALS: Ht 188 cm; Wt 65.8 kg
[~2021-08-08 00:55] MED LIST changes: +FLOMAX0.4 MG PO; +FOLI1 PO; +SEROQUEL50 MG PO; +Vitamin B Comple1 EA PO; +XARELTO10 M1 PO
[2021-08-08] MEDS ORDERED: CHLO25 PO (02:20)
== END 2021-08-08 02:39 | disposition home or self-care (01) ==
LOC: ER 00:55
DX: F10.239 Alcohol dependence with withdrawal, unspecified (principal); K21.9 Gastro-esophageal reflux disease without esophagitis; E03.9 Hypothyroidism, unspecified; M19.90 Unspecified osteoarthritis, unspecified site; Z88.1 Allergy status to other antibiotic agents; Z88.8 Allergy status to other drugs, medicaments and biological substances; Z79.899 Other long term (current) drug therapy; Z86.718 Personal history of other venous thrombosis and embolism
CPT/HCPCS: 99284; A9270

== ENCOUNTER 2021-10-05 18:09 | Emergency (ER) | payer OTHER ==
[~2021-10-05] VITALS: Ht 180.3 cm; Wt 81.7 kg
[~2021-10-05 18:09] MED LIST changes: +CHLO25 PO
[2021-10-05 18:45] LABS: BASOPHILS ABSOLUTE AUTO 0.06 K/mm3 (0.00-0.23); BASOPHILS PERCENT AUTO 1 % (0-2); EOSINOPHILS ABSOLUTE AUTO 0.09 K/mm3 (0.00-0.68); EOSINOPHILS PERCENT AUTO 1 % (0-6); Hematocrit 43.9 % (37.0-53.0); Hemoglobin 15.1 g/dL (13.5-17.5); IMMATURE GRAN ABSOLUTE AUTO 0.18 K/mm3 (0.00-0.10); IMMATURE GRAN PERCENT AUTO 2 % (0-1); LYMPHOCYTES ABSOLUTE AUTO 1.96 K/mm3 (0.84-5.20); LYMPHOCYTES PERCENT AUTO 19 % (21-46); MONOCYTES ABSOLUTE AUTO 0.73 K/mm3 (0.16-1.47); MONOCYTES PERCENT AUTO 7 % (4-13); Mean Corpuscular HGB 32.3 pg (26.0-34.0); Mean Corpuscular HGB Conc 34.4 g/dL (31.5-36.5); Mean Corpuscular Volume 94 fL (80-100); Mean Platelet Volume 9.9 fL (9.1-12.4); NEUTROPHILS ABSOLUTE AUTO 7.46 K/mm3 (1.96-9.15); NEUTROPHILS PERCENT AUTO 71 % (41-73); NRBC ABSOLUTE 0.02 K/mm3 (0.00-0.02); NRBC Auto 0.2 /100 WBC (0.0-0.2); Platelet Count 212 K/mm3 (150-400); RDW Coefficient Variation 14.6 % (11.7-14.2); RDW Standard Deviation 50.1 fL (35.1-46.3); Red Blood Cell Count 4.67 M/mm3 (4.30-5.90); White Blood Cell Count 10.48 K/mm3 (4.00-11.30)
[2021-10-05 19:07] LABS: Alanine Aminotransfer (ALT/SGP 50 U/L (12-78); Albumin, Blood 3.4 g/dL (3.4-5.0); Albumin/Globulin Ratio 0.9 (0.8-1.8); Alk Phos 101 U/L (50-136); Anion Gap 9 mmol/L (6-16); Aspartate Aminotrans (AST/SGOT 97 U/L (12-37); Bilirubin, Total 0.9 mg/dL (0.1-1.0); Blood Urea Nitrogen 7 mg/dL (8-24); Bun/Creatinine Ratio 9.4 (12.0-20.0); CO2, Blood 25 mmol/L (21-32); Calcium, Blood 8.9 mg/dL (8.5-10.1); Chloride, Blood 99 mmol/L (98-108); Creatinine, Blood 0.74 mg/dL (0.60-1.20); Globulin, Blood 3.9 g/dL (2.2-4.0); Glomerular Filtration Rate >60 (60-); Glucose, Blood 98 mg/dL (70-99); Potassium, Blood 3.7 mmol/L (3.5-5.5); Sodium, Blood 133 mmol/L (136-145); Total Protein, Blood 7.3 g/dL (6.4-8.2)
[2021-10-05] MEDS ORDERED: Percocet 5-3251 EACH PO (21:25)
== END 2021-10-05 21:24 | disposition home or self-care (01) ==
LOC: ER 18:09
PROVIDERS: Emergency Medicine
DX: S30.0XXA Contusion of lower back and pelvis, initial encounter (principal); S00.01XA Abrasion of scalp, initial encounter; S50.812A Abrasion of left forearm, initial encounter; S60.512A Abrasion of left hand, initial encounter; N40.0 Benign prostatic hyperplasia without lower urinary tract symptoms; E03.9 Hypothyroidism, unspecified; K21.9 Gastro-esophageal reflux disease without esophagitis; Z88.1 Allergy status to other antibiotic agents; Z88.8 Allergy status to other drugs, medicaments and biological substances; Z79.899 Other long term (current) drug therapy; Z79.01 Long term (current) use of anticoagulants; Z86.718 Personal history of other venous thrombosis and embolism; V03.99XA Pedestrian with other conveyance injured in collision with car, pick-up truck or van, unspecified whether traffic or nontraffic accident, initial encounter
CPT/HCPCS: 70450; 72100; 72220; 80053; 85025; 96374; 99284-25; A9270; J1170; J1885

== ENCOUNTER 2021-10-15 16:30 | Emergency (ER) | payer OTHER ==
[~2021-10-15] VITALS: Ht 188 cm; Wt 70.3 kg
[~2021-10-15 16:30] MED LIST changes: +GABA300 PO; +Percocet 5-3251 EACH PO; +ROXICODONE5 MG PO
== END 2021-10-15 18:15 | disposition home or self-care (01) ==
LOC: ER 16:30
DX: S72.411D Displaced unspecified condyle fracture of lower end of right femur, subsequent encounter for closed fracture with routine healing (principal); S32.591D Other specified fracture of right pubis, subsequent encounter for fracture with routine healing; E03.9 Hypothyroidism, unspecified; E78.00 Pure hypercholesterolemia, unspecified; Z79.899 Other long term (current) drug therapy; X58.XXXD Exposure to other specified factors, subsequent encounter
CPT/HCPCS: 99283